=== PATIENT | male | born 1960 | race Caucasian/White ===

== ENCOUNTER 2018-08-20 01:35 | Outpatient (CLI) | payer BC, SELFPAY ==
[2018-08-20 11:18] LABS: HCT 41.8 % (40.0-50.0); HGB 13.9 g/dL (13.5-17.5); Mean Corp. HGB Concentration 33.3 g/dL (32.0-36.0); Mean Corpuscular Hemoglobin 31.7 pg (27.0-33.0); Mean Corpuscular Volume 95.4 fL (80-95); Platelet Count 317 x1000/uL (130-400); RBC 4.38 m/cumm (4.50-6.00); White Blood Cell Count 5.95 k/cumm (4.4-10.8)
[2018-08-20 12:53] LABS: ALT 35 U/L (12-78); AST 28 U/L (15-37); Albumin 3.5 g/dL (3.4-5.0); Alkaline Phosphatase 82 U/L (46-116); BUN 20 mg/dL (7-18); Bilirubin, Total 0.7 mg/dL (0.2-1.0); CREATININE 1.13 mg/dL (0.70-1.30); Calcium 9.1 mg/dL (8.5-10.1); Chloride 103 mmol/L (98-107); Glucose 84 mg/dL (70-100); Potassium 4.2 mmol/L (3.5-5.1); Sodium 141 mmol/L (136-145); Total Protein 6.4 g/dL (6.4-8.2)
== END 2018-08-20 01:55 ==
PROVIDERS: PCP Emergency Medicine; Visit Provider Dermatology
DX: L30.9 Dermatitis, unspecified (principal); Z79.899 Other long term (current) drug therapy
CPT/HCPCS: 36415; 80053; 85027

== ENCOUNTER 2018-09-20 16:16 | Outpatient (CLI) | payer BC, SELFPAY ==
--- NOTE | 2018-09-20 15:28 | DI.RAD_ITS ---
SYMPTOMS/DIAGNOSIS: RIGHT LOWER LOBE PNEUMONIA, J18.1 LOBAR PNEUMONIA PA AND LATERAL CHEST: The heart is not enlarged. There is a faint nodular radiodensity overlying the right lung apex, which was not present on previous examination of 02/08/18. Question of a couple of small focal areas of nodularity projected over the left mid lung is also raised. No pleural effusions seen. CONCLUSION: Question bilateral nodular radiodensities. Chest CT suggested for correlation to evaluate the possibility of neoplastic disease.
== END 2018-09-20 16:36 ==
PROVIDERS: PCP Emergency Medicine; Visit Provider Emergency Medicine
DX: J18.1 Lobar pneumonia, unspecified organism (principal); J98.4 Other disorders of lung
CPT/HCPCS: 71046

== ENCOUNTER 2018-10-04 08:53 | Outpatient (CLI) | payer BC, SELFPAY ==
--- NOTE | 2018-10-04 08:58 | DI.RAD_ITS ---
SYMPTOM/DIAGNOSIS: ABNORMAL CXR. FEVER AND COUGH R93.89, ABNORMAL FINDINGS ON DIAG IMAGING CHEST X-RAY: PA and lateral. Comparison 09/20/18 The multi-focal air space opacities have resolved. No acute infiltrates, effusions or pneumothoraces are identified. Heart size and pulmonary vasculature are within normal limits. Age related degenerative changes are seen in the spine. IMPRESSION: No acute pulmonary process. Resolution of the bilateral pulmonary infiltrates.
== END 2018-10-04 09:13 ==
PROVIDERS: PCP Emergency Medicine; Visit Provider Emergency Medicine
DX: R50.9 Fever, unspecified (principal); R05 Cough; R93.89 Abnormal findings on diagnostic imaging of other specified body structures
CPT/HCPCS: 71046

== ENCOUNTER 2018-11-22 05:57 | Emergency (ER) | payer BC, SELFPAY ==
[2018-11-22 06:04] VITALS: BP 112/59; PULSE 72; RESP 18; TEMP 36.5; O2SAT 100
--- NOTE | 2018-11-22 06:27 | ED.GENADUL_ITS ---
Discharge Plan Disposition Patient Disposition: HOME Condition: Good Discharge Details Chief Complaint: Abd Prob Clinical Impression: Renal colic on right side, Kidney stone, Renal cyst Primary Care Provider: Chan Osman ED Provider: Se Escamilla Home Meds and New Rx's Prescriptions: Continued ProAir HFA 8.5 GM HFA aerosol inhaler 2 puff Inhalation Q4H PRN Qty: 3 RF: 12 folic acid 1 MG tablet 1 mg PO DAILY RF: 0 albuterol sulfate 2.5 MG/3 ML solution for nebulization 2.5 mg Inhalation Q4H PRN Qty: 2 RF: 3 methotrexate sodium 2.5 MG tablet 2.5 mg PO takes 6 tablets/week Qty: 72 RF: 4 lisinopril 5 MG tablet 5 mg PO DAILY Qty: 90 RF: 4 Spiriva with HandiHaler 18 mcg capsule, w/inhalation device 18 mcg Inhalation DAILY Qty: 1 RF: 12 hydroxyzine HCl 10 mg tablet 10 mg PO BID PRNQty: 90 RF: 3 Advair Diskus 500-50 mcg/dose blister with device 1 inh Inhalation BID Qty: 2 RF: 12 lorazepam [Ativan] 1 mg tablet 1 mg PO HS PRN (Reason: sleep) Qty: 25 RF: 1 montelukast [Singulair] 10 mg tablet 10 mg PO DAILY Qty: 90 RF: 3 Discharge Instructions Instructions: Kidney Stones (ED) Additional Instructions: Please follow-up with your primary care physician. Return to the ER for any worsening or new concerning symptoms. Referrals: Chan Osman, [Primary Care Provider] - Discharge Data Discharge Date/Time-TO BE ENTERED AT DEPARTURE: 11/22/18 09:58 Medical Decision Making <Elvin Kelley MD - Last Filed: 11/23/18 22:13> Patient presenting with right lower quadrant pain which is resolved. He states he felt a pop but he never felt a bulge or firmness in the abdomen. He had some urinary symptoms and has mild CVAT. My differential would be kidney stone versus hernia. I am leaning more toward a kidney stone. He has never had this previously and despite his pain being gone I am going to work him up with laboratory studies, urinalysis, stone study. Laboratory studies unremarkable. White count is slightly elevated. Renal function normal. Urinalysis positive for blood only. Stone study does show evidence of a recently passed calculus on the right. However, he is also noted to have bilateral renal lesions including something on the left that may be a hemorrhagic cyst. He has no pain currently and has never had pain on the left. Because of the report of lesions I am going to get renal ultrasound is to rule out significant pathologic condition. Signed over to Dr. Escamilla to follow-up on ultrasound results and plan discharge as appropriate. Lab Data Lab results reviewed: Yes I reviewed the patient's lab results. HPI <Elvin Kelley MD - Last Filed: 11/23/18 22:13> General Mode of arrival: ambulatory . Date/Time Provider Initiated Documentation: 11/22/18 06:22 . Limitations to Documentation: no limitations . Information obtained by: patient and RN notes reviewed . HPI Narrative: Patient presents to the ED for evaluation of right sided abdominal pain. It woke him up out of a sleep. He was pacing and doubled over. He had episodes of dry heaves. [place] like he needed to defecate but could not. Had a little bit of urinary urgency and dysuria. He has had no fevers. While here he felt a little pop in his pain went away. He has never had it previously. It has not returned here. Related Data Home Medications Medication Instructions Recorded Confirmed ProAir HFA 2 puff INHALATION Q4H PRN #3 11/17/17 11/22/18 inhaler folic acid 1 mg PO DAILY tab-cap 02/05/18 11/22/18 albuterol sulfate 2.5 mg INHALATION Q4H PRN #2 box 02/08/18 11/22/18 methotrexate sodium 2.5 mg PO takes 6 tablets/week #72 03/21/18 11/22/18 tab lisinopril 5 mg PO DAILY #90 tab 04/03/18 11/22/18 tiotropium bromide 18 mcg capsule 18 mcg INHALATION DAILY #1 tab-cap 08/07/18 11/22/18 with inhalation device hydroxyzine HCl 10 mg tablet 10 mg PO BID PRN #90 tab 09/20/18 11/22/18 fluticasone 500 mcg-salmeterol 50 1 inh INHALATION BID #2 each 10/12/18 11/22/18 mcg/dose blistr powdr for inhalation lorazepam 1 mg tablet 1 mg PO HS PRN #25 tab-cap 10/12/18 11/22/18 montelukast 10 mg tablet 10 mg PO DAILY #90 tab-cap 10/12/18 11/22/18 Previous Rx's Medication Instructions Recorded ProAir HFA 2 puff INHALATION Q4H PRN #3 11/17/17 inhaler albuterol sulfate 2.5 mg INHALATION Q4H PRN #2 box 02/08/18 methotrexate sodium 2.5 mg PO takes 6 tablets/week #72 03/21/18 tab lisinopril 5 mg PO DAILY #90 tab 04/03/18 tiotropium bromide 18 mcg capsule 18 mcg INHALATION DAILY #1 tab-cap 08/07/18 with inhalation device fluticasone 500 mcg-salmeterol 50 1 inh INHALATION BID #2 each 10/12/18 mcg/dose blistr powdr for inhalation lorazepam 1 mg tablet 1 mg PO HS PRN #25 tab-cap 10/12/18 montelukast 10 mg tablet 10 mg PO DAILY #90 tab-cap 10/12/18 Allergies Allergy/AdvReac Type Severity Reaction Status Date / Time DOG DANDER Allergy Mild Uncoded 11/22/18 06:11 DUST Allergy Mild Uncoded 11/22/18 06:11 POLLEN EXTRACTS Allergy Mild Uncoded 11/22/18 06:11 WHITE PINE Allergy Unknown Uncoded 11/22/18 06:11 General Stated Complaint: Abd Prob ADRIANA: 3 Review of Systems <Elvin Kelley MD - Last Filed: 11/23/18 22:13> Constitutional Denies chills, Denies fever(s), Denies headache(s), Denies poor appetite and Denies weakness Eyes Denies eye discharge and Denies itchy eyes ENT Denies otalgia, Denies headache(s), Denies nasal congestion, Denies neck pain and Denies sore throat Cardiovascular Denies chest pain, Denies diaphoresis, Denies edema, Denies lightheadedness and Denies dyspnea Respiratory Denies cough and Denies dyspnea Gastrointestinal Reports abdominal pain, Denies diarrhea, Reports nausea and Reports vomiting Genitourinary Denies hematuria, Reports dysuria, Denies flank pain, Denies scrotal swelling, Denies testicular pain and Reports urinary urgency Musculoskeletal Reports back pain (unchanged), Denies neck pain and Denies numbness Integumentary/Breasts Denies rash Neurologic Denies headache(s), Denies focal weakness, Denies numbness and Denies weakness Allergic/Immunologic Denies itchy eyes PFSH <Elvin Kelley MD - Last Filed: 11/23/18 22:13> Medical History Peptic ulcer of duodenum (Chronic 03/03/17) Hyperlipidemia (Chronic) Essential hypertension (Chronic) Erosive gastritis (Chronic 03/03/17) Asthma (Chronic) Surgical History Colonoscopy - MAC (Inactive 10/11/17) EGD - MAC (Inactive 10/11/17) HERNIA REPAIR (Inactive ~2010) Social History Smoking/Tobacco Use Status: Never Exam <Elvin Kelley MD - Last Filed: 11/23/18 22:13> Const General: cooperative, comfortable and no acute distress Orientation: alert and oriented x3 Neck Neck: normal visual inspection, trachea midline and supple Resp Effort & Inspection: normal respiratory effort Auscultation: clear to auscultation bilaterally Cardio Rate: regular rate Rhythm: regular rhythm Heart Sounds: S1 normal and S2 normal GI Inspection: non-distended Palpation: soft, not firm, no guarding, no hernias, no masses and nontender Male General Exam: Yes normal external exam, No hernia and No inguinal lymphadenopathy Penis: normal penis Scrotum: scrotum normal Testes: normal Back/Spine/Pelvis Back: CVA tenderness (mild right) Skin General skin exam: no rashes or lesions noted Neuro General: alert, oriented x3, no focal motor deficits and CN's II-XI intact bilaterally Extrem General: normal to inspection, full ROM and no clubbing, cyanosis or edema Course <Elvin Kelley MD - Last Filed: 11/23/18 22:13> Vital Signs Temperature 97.7 F 11/22/18 06:04 Pulse 72 11/22/18 06:04 Respiratory Rate 18 11/22/18 06:04 Blood Pressure 112/59 L 11/22/18 06:04 Pulse Oximetry 100 11/22/18 06:04 Temperature 97.7 F 11/22/18 06:04 Temperature Source Temporal Artery Scan 11/22/18 06:04 Pulse 72 11/22/18 06:04 Respiratory Rate 18 11/22/18 06:04 Respiratory Effort 11/22/18 06:04 Blood Pressure 112/59 L 11/22/18 06:04 Pulse Oximetry 100 11/22/18 06:04 Oxygen Delivery Method Room Air 11/22/18 06:04 Oxygen Flow Rate 0 11/22/18 06:04 Pain Level 8 11/22/18 06:04 Sign Out <Elvin Kelley MD - Last Filed: 11/23/18 22:13> Sign Out Data: Sign Out Comment: Signed out to Dr. Escamilla pending renal U/S Last updated by Elvin Kelley MD at 11/22/18 08:23 Post-Handoff Eval: Care signed out by Dr. Kelley with plan to follow-up on ultrasound. US interpreted by radiology: renal cysts present and unchanged from prior. Patient reassessed and much improved. Disposition decision was made weighing the risks and benefits of hospitalization versus outpatient treatment, the risk for further decompensation, and the patient's wishes. The patient was stable and requested discharge. Prior to discharge, my usual and customary return precautions were reviewed with the patient - this included follow-up instructions and reason to return to the emergency department if condition worsens, does not improve as expected, or other new concerns arise. Patient advised to follow-up with PCP.
--- NOTE | 2018-11-22 06:37 | DI.CT_ITS ---
SYMPTOM/DIAGNOSIS: RIGHT SIDE ABDOMINAL/FLANK PAIN RENAL COLIC CT: Comparison is made with 17 February 2017, contrast enhanced exam. There is mild right hydronephrosis. The ureter is dilated to the level of the ureterovesical junction. There is a 1-2 mm stone seen in the dependent portion of the bladder. The bladder is mildly distended but unremarkable. No additional urinary tract calculi are seen. There is a circumscribed hyperdense lesion on the left kidney consistent with a hyperdense cyst. The cyst was demonstrated on the previous CT. An additional cyst is seen at the upper pole of the left kidney, unchanged. There is a tiny hyperdense cyst seen in the mid portion of the right kidney, unchanged. There is a small hiatal hernia. There is a small right pleural effusion. A small portion of the base of the heart is included on the exam. There is a question of a small pericardial effusion. No pulmonary infiltrates are seen. The liver, gallbladder, spleen, adrenals and pancreas are unremarkable. The appendix appears normal. There is diverticulosis of the colon greatest in the sigmoid region. There is no evidence of diverticulitis, free air or free fluid. The prostate is normal in size. The aorta is normal in diameter. Degenerative changes are seen in the spine, greatest at L5-S1. IMPRESSION: Mild right hydronephrosis secondary to a 1-2 mm stone which is now seen in the bladder. A tiny right pleural effusion and small pericardial effusion are seen. There are bilateral renal cysts, some of which are hyperdense which are unchanged from the previous exam.
[2018-11-22 06:57] LABS: Abs Immature Grans 0.03 k/cumm (0.0-0.09); Absolute Basophil Count 0.03 k/cumm (0.0-0.2); Absolute Eosinophil Count 0.48 k/cumm (0.0-0.7); Absolute Lymphocyte Count 1.31 k/cumm (1.2-3.4); Absolute Neutrophil Count 8.64 k/cumm (1.2-6.7); Basophils % 0.3; Eosinophils % 4.2; HGB 13.7 g/dL (13.5-17.5); Immature Grans % 0.3; Lymphocytes % 11.4; Mean Corp. HGB Concentration 32.6 g/dL (32.0-36.0); Mean Corpuscular Hemoglobin 30.6 pg (27.0-33.0); Mean Corpuscular Volume 93.8 fL (80-95); Mean Platelet Volume 8.5 fL (8.0-11.0); Monocytes % 8.5; Neutrophils % 75.3; Platelet Count 432 x1000/uL (130-400); RBC 4.48 m/cumm (4.50-6.00); White Blood Cell Count 11.47 k/cumm (4.4-10.8)
[2018-11-22 06:58] LABS: Absolute Monocyte Count 0.97 k/cumm (0.11-0.7)
[2018-11-22 07:05] LABS: Bilirubin Negative (Negative); Blood Moderate (Negative); Clarity Clear; Glucose Negative (Negative); Ketones Negative (Negative); Leukocyte Esterase Negative (Negative); Nitrite Negative (Negative); Urobilinogen 0.2 EU/dL (Up TO 0.2); pH 7.5 (5-8)
[2018-11-22 07:10] LABS: ALT 15 U/L (12-78); AST 12 U/L (15-37); Albumin 3.3 g/dL (3.4-5.0); Alkaline Phosphatase 101 U/L (46-116); Anion Gap 7.5 mmol/L (3-11); BUN 21 mg/dL (7-18); Bilirubin, Total 0.3 mg/dL (0.2-1.0); CO2 29.5 mmol/L (21.0-32.0); CREATININE 1.03 mg/dL (0.70-1.30); Calcium 9.2 mg/dL (8.5-10.1); Chloride 102 mmol/L (98-107); Glucose 93 mg/dL (70-100); Lipase 85 U/L (73-393); Potassium 4.4 mmol/L (3.5-5.1); Sodium 139 mmol/L (136-145); Total Protein 7.5 g/dL (6.4-8.2)
--- NOTE | 2018-11-22 07:29 | DI.VRAD_ITS ---
EXAM: CT Abdomen and Pelvis Without Contrast EXAM DATE/TIME: 11/22/2018 6:39 AM CLINICAL HISTORY: 58 years old, male; Signs and symptoms; Other: Right sided abdominal pain, flank pain TECHNIQUE: Axial computed tomography images of the abdomen and pelvis without contrast. All CT scans at this facility use at least one of these dose optimization techniques: automated exposure control; mA and/or kV adjustment per patient size (includes targeted exams where dose is matched to clinical indication); or iterative reconstruction. Coronal and sagittal reformatted images were created and reviewed. COMPARISON: CT ABD PELVIS WITH CONTRAST 02/17/2017 12:35 PM FINDINGS: Lower thorax: No acute findings. ABDOMEN: Liver: Normal. No mass. Gallbladder and bile ducts: Normal. No calcified stones. No ductal dilation. Pancreas: Normal. No ductal dilation. Spleen: Normal. No splenomegaly. Adrenals: Normal. No mass. Kidneys and ureters: Bilateral renal lesions are present including what likely reflects a hemorrhagic cyst on the left measuring 19 mm Mild fullness of the right-sided renal collecting system and ureter. A 1-2 mm bladder calculus is present which may reflect a recently passed right sided ureteral stone. Stomach and bowel: Colonic diverticulosis is present without evidence for inflammation. Appendix: No evidence of appendicitis. PELVIS: Bladder: See Kidneys And Ureters Finding. Reproductive: Unremarkable as visualized. ABDOMEN and PELVIS: Intraperitoneal space: Normal. No free air. No significant fluid collection. Bones/joints: No acute fracture. No dislocation. Soft tissues: Unremarkable. Vasculature: Normal. No abdominal aortic aneurysm. Lymph nodes: Normal. No enlarged lymph nodes. IMPRESSION: Mild fullness of the right-sided renal collecting system and ureter. A 1-2 mm bladder calculus is present which may reflect a recently passed right sided ureteral stone. Dictated and Authenticated by: Antony Smith MD. Ordering:SUKHI Oconnor MD
[2018-11-22 07:42] LABS: Bacteria Negative HPF (Negative); C & S Indicated? No; Casts Negative LPF (Negative); Crystals Negative HPF (Negative); Epithelial Cells Negative HPF (Negative); Mucus Negative (Negative); RBC >50 (0-2); WBC 0-2 HPF (0-5)
--- NOTE | 2018-11-22 07:43 | DI.US_ITS ---
SYMPTOM/DIAGNOSIS: BILATERAL 'LESIONS' ON STONE STUDY CT SCAN RENAL ULTRASOUND: The pre-void bladder volume measures 142 cc The prostate volume is 11.6 cc. Both ureteral jets were visualized. A tiny stone was seen in the bladder on CT which is not demonstrated on the ultrasound images. No significant right hydronephrosis is demonstrated which was seen on CT. A 1.5 cm cyst is seen in the mid portion of the left kidney laterally. A 1.3 cm cyst is seen near the upper pole of the left kidney. The tiny cyst seen on CT is not noted on the ultrasound images. There are no perinephric collections. IMPRESSION: Small bilateral renal cysts, unchanged when compared with previous CT from 2017. The stone seen in the bladder as well as a mild right hydronephrosis are not demonstrated on the ultrasound images.
[2018-11-22 09:58] VITALS: BP 119/70; PULSE 68; RESP 15; TEMP 36.5; O2SAT 100
== END 2018-11-22 09:58 | disposition home or self-care (01) ==
PROVIDERS: Emergency Medicine; Emergency Provider Student in an Organized Health Care Education/Training Program; PCP Emergency Medicine
DX: N23 Unspecified renal colic (principal); N20.0 Calculus of kidney; N28.1 Cyst of kidney, acquired
CPT/HCPCS: 36415; 76770; 80053; 83690; 99284; 74176; 81003; 81015; 85025

== ENCOUNTER 2018-11-30 15:02 | Outpatient (CLI) | payer BC, SELFPAY ==
[2018-11-30 15:43] LABS: Abs Immature Grans 0.01 k/cumm (0.0-0.09); Absolute Basophil Count 0.05 k/cumm (0.0-0.2); Absolute Eosinophil Count 0.49 k/cumm (0.0-0.7); Absolute Lymphocyte Count 1.71 k/cumm (1.2-3.4); Absolute Neutrophil Count 5.46 k/cumm (1.2-6.7); Basophils % 0.6; Eosinophils % 5.9; HGB 12.3 g/dL (13.5-17.5); Immature Grans % 0.1; Lymphocytes % 20.6; Mean Corp. HGB Concentration 32.4 g/dL (32.0-36.0); Mean Corpuscular Hemoglobin 30.1 pg (27.0-33.0); Mean Corpuscular Volume 93.1 fL (80-95); Mean Platelet Volume 8.7 fL (8.0-11.0); Monocytes % 7.2; Neutrophils % 65.6; Platelet Count 454 x1000/uL (130-400); RBC 4.08 m/cumm (4.50-6.00); RBC Distribution Width 13.5 % (11.8-14.1); White Blood Cell Count 8.32 k/cumm (4.4-10.8)
[2018-11-30 16:24] LABS: Ferritin 511 ng/mL (8-388)
[2018-11-30 16:53] LABS: ESR 61 MM/HR (1-20)
[2018-12-03 10:46] LABS: Cyclic Citrullinated Peptide <2.5 U/mL (<5.0)
[2018-12-03 11:18] LABS: HIV-1/2 Ag & Ab Screen Negative (NEGAT)
[2018-12-03 12:04] LABS: CREATININE 1.25 mg/dL (0.70-1.30); Estimated GFR 59.75 (mL/min/1.73m2)
== END 2018-11-30 15:22 ==
PROVIDERS: PCP Emergency Medicine; Visit Provider Emergency Medicine
DX: J90 Pleural effusion, not elsewhere classified (principal); Z11.4 Encounter for screening for human immunodeficiency virus [HIV]
CPT/HCPCS: 36415; 85652; 86200; 87389; 82565; 82728; 85025; 86480

== ENCOUNTER 2018-12-05 00:36 | Outpatient (CLI) | payer BC, SELFPAY ==
--- NOTE | 2018-12-05 13:16 | DI.CT_ITS ---
SYMPTOMS/DIAGNOSIS: WEIGHT LOSS, RT PLEURAL EFFUSION, J90 CHEST CT: A with contrast enhanced CT examination of the chest was carried out with an intravenous administration of 70 cc's of Omnipaque 350. There is no pulmonary infiltrate or mass. There is no pleural effusion. There is no evidence of pulmonary embolic disease. There is no evidence of hilar or mediastinal adenopathy. The heart is not enlarged. There may be a trace pericardial effusion or pericardial thickening. There is no evidence of an aortic aneurysm. Degenerative changes involving the dorsal spine are identified with multi-level disc space narrowing, discogenic sclerosis and hypertrophic spurring involving the lower dorsal region. There is no localized area of bony sclerosis, osteolysis or expansion. SUMMARY: No pleural effusion is demonstrated on today's examination. There is nothing to suggest acute cardiopulmonary disease, pulmonary mass and/or adenopathy.
[2018-12-05] MEDS: Omnipaque 350 MG/ML 100 ML BTL IJ (14:21)
[2018-12-07 14:22] LABS: TB Interpretation Negative (NEGAT); TB2 Ag minus Nil 0.01 IU/mL
== END 2018-12-05 00:56 ==
PROVIDERS: PCP Emergency Medicine; Visit Provider Emergency Medicine
DX: J90 Pleural effusion, not elsewhere classified (principal); R63.4 Abnormal weight loss
CPT/HCPCS: 71260; 86480; J3490

== ENCOUNTER 2018-12-24 08:42 | Outpatient (CLI) | payer BC, SELFPAY ==
[2018-12-24 12:08] LABS: Abs Immature Grans 0.02 k/cumm (0.0-0.09); Absolute Basophil Count 0.03 k/cumm (0.0-0.2); Absolute Eosinophil Count 0.76 k/cumm (0.0-0.7); Absolute Lymphocyte Count 2.21 k/cumm (1.2-3.4); Absolute Monocyte Count 0.62 k/cumm (0.11-0.7); Absolute Neutrophil Count 6.75 k/cumm (1.2-6.7); Basophils % 0.3; Eosinophils % 7.3; HCT 42.7 % (40.0-50.0); HGB 13.9 g/dL (13.5-17.5); Immature Grans % 0.2; Lymphocytes % 21.3; Mean Corp. HGB Concentration 32.6 g/dL (32.0-36.0); Mean Corpuscular Hemoglobin 30.1 pg (27.0-33.0); Mean Corpuscular Volume 92.4 fL (80-95); Mean Platelet Volume 10.3 fL (8.0-11.0); Neutrophils % 64.9; Platelet Count 254 x1000/uL (130-400); RBC 4.62 m/cumm (4.50-6.00); RBC Distribution Width 14.9 % (11.8-14.1); White Blood Cell Count 10.39 k/cumm (4.4-10.8)
[2018-12-24 12:27] LABS: TSH 2.51 uIU/mL (0.358-3.74)
[2018-12-24 12:32] LABS: Bilirubin Negative (Negative); Blood Negative (Negative); Clarity Clear; Glucose Negative (Negative); Ketones Negative (Negative); Leukocyte Esterase Negative (Negative); Nitrite Negative (Negative); Specific Gravity >= 1.030 (1.005-1.025); Urobilinogen 0.2 EU/dL (Up TO 0.2); pH 5.5 (5-8)
[2018-12-24 13:48] LABS: ESR 11 MM/HR (1-20)
== END 2018-12-24 09:02 ==
PROVIDERS: PCP Emergency Medicine; Visit Provider Emergency Medicine
DX: R63.4 Abnormal weight loss (principal); R30.0 Dysuria; E03.9 Hypothyroidism, unspecified
CPT/HCPCS: 36415; 85652; 81003; 84443; 85025

== ENCOUNTER 2019-03-29 13:35 | Outpatient (CLI) | payer BC, SELFPAY ==
[2019-03-29 14:22] LABS: Abs Immature Grans 0.01 k/cumm (0.0-0.09); Absolute Basophil Count 0.02 k/cumm (0.0-0.2); Absolute Monocyte Count 0.54 k/cumm (0.11-0.7); Absolute Neutrophil Count 5.87 k/cumm (1.2-6.7); Basophils % 0.2; Eosinophils % 7.8; HCT 43.4 % (40.0-50.0); HGB 14.7 g/dL (13.5-17.5); Immature Grans % 0.1; Lymphocytes % 20.1; Mean Corp. HGB Concentration 33.9 g/dL (32.0-36.0); Mean Corpuscular Hemoglobin 31.3 pg (27.0-33.0); Mean Corpuscular Volume 92.3 fL (80-95); Mean Platelet Volume 9.6 fL (8.0-11.0); Neutrophils % 65.8; Platelet Count 286 x1000/uL (130-400); RBC Distribution Width 12.9 % (11.8-14.1); White Blood Cell Count 8.94 k/cumm (4.4-10.8)
[2019-03-29 14:33] LABS: ALT 25 U/L (12-78); AST 12 U/L (15-37); Albumin 3.5 g/dL (3.4-5.0); Alkaline Phosphatase 102 U/L (46-116); Anion Gap 8.8 mmol/L (3-11); BUN 19 mg/dL (7-18); Bilirubin, Total 0.5 mg/dL (0.2-1.0); CO2 29.2 mmol/L (21.0-32.0); CREATININE 1.13 mg/dL (0.70-1.30); Calcium 8.9 mg/dL (8.5-10.1); Chloride 102 mmol/L (98-107); Glucose 111 mg/dL (70-100); Potassium 3.7 mmol/L (3.5-5.1); Sodium 140 mmol/L (136-145); Total Protein 6.7 g/dL (6.4-8.2)
== END 2019-03-29 13:55 ==
PROVIDERS: PCP Emergency Medicine; Visit Provider Dermatology
DX: Z79.899 Other long term (current) drug therapy (principal)
CPT/HCPCS: 36415; 80053; 85025

== ENCOUNTER 2019-11-25 10:37 | Outpatient (CLI) | payer OTHER, SELFPAY ==
--- NOTE | 2019-11-25 10:33 | DI.RAD_ITS ---
EXAM: XR CHEST 2V PA LATERAL INDICATION: cough, R05. COMPARISON: XR CHEST 2V PA LATERAL from 10/04/2018 TECHNIQUE: 2D digital imaging was performed. FINDINGS: The heart size and pulmonary vasculature are within normal limits. There is an opacity in the right middle lobe suspicious for an pneumonia. The lungs are otherwise clear. No pleural effusion or pneu mothorax is identified. Degenerative changes are present in the spine. IMPRESSION: Opacity in the right middle lobe suspicious for pneumonia. A follow-up chest x-ray is recommended in this patient to document complete resolution. If the finding persists, a CT scan should be consider ed to exclude other etiologies.
[2019-11-25 11:02] LABS: Abs Immature Grans 0.06 k/cumm (0.0-0.09); Absolute Basophil Count 0.02 k/cumm (0.0-0.2); Absolute Lymphocyte Count 2.04 k/cumm (1.2-3.4); Basophils % 0.1; HCT 44.1 % (40.0-50.0); HGB 14.1 g/dL (13.5-17.5); Immature Grans % 0.3 %; Lymphocytes % 9.9; Mean Corpuscular Hemoglobin 29.8 pg (27.0-33.0); Mean Corpuscular Volume 93.2 fL (80-95); Mean Platelet Volume 9.1 fL (8.0-11.0); Monocytes % 8.7; Platelet Count 217 x1000/uL (130-400); RBC 4.73 m/cumm (4.50-6.00); RBC Distribution Width 13.8 % (11.8-14.1); White Blood Cell Count 20.59 k/cumm (4.4-10.8)
[2019-11-25 11:03] LABS: Absolute Monocyte Count 1.79 k/cumm (0.11-0.7); Absolute Neutrophil Count 16.68 k/cumm (1.2-6.7)
[2019-11-25 11:32] LABS: Diff Comment Diff Reviewed; RBC Morphology Normal
[2019-11-25 12:05] LABS: ALT 24 U/L (16-63); AST 17 U/L (15-37); Albumin 3.3 g/dL (3.4-5.0); Alkaline Phosphatase 85 U/L (46-116); Anion Gap 8.9 mmol/L (3-11); Bilirubin, Total 0.5 mg/dL (0.2-1.0); CO2 29.1 mmol/L (21.0-32.0); CREATININE 1.34 mg/dL (0.70-1.30); Calcium 8.4 mg/dL (8.5-10.1); Chloride 104 mmol/L (98-107); Estimated GFR 54.94 (mL/min/1.73m2); Glucose 73 mg/dL (74-106); Potassium 3.6 mmol/L (3.5-5.1); Sodium 142 mmol/L (136-145); Total Protein 6.3 g/dL (6.4-8.2)
[2019-11-25 12:13] LABS: BUN 25 mg/dL (7-18)
== END 2019-11-25 10:57 ==
PROVIDERS: PCP Emergency Medicine; Visit Provider Internal Medicine
DX: R05 Cough (principal); R50.9 Fever, unspecified; J98.4 Other disorders of lung
CPT/HCPCS: 36415; 80053; 71046; 85025

== ENCOUNTER 2019-11-26 11:54 | Inpatient (IN) | payer OTHER, SELFPAY ==
[2019-11-26] VITALS (137 sets, daily range): BP systolic 67–106; BP diastolic 34–69; PULSE 80–179; RESP 2–30; TEMP 36.6–37.3; O2SAT 89–100
[2019-11-26] MEDS: Normal Saline 1,000 ML 1000 ML IV ×2 (12:20→16:05)
[2019-11-26] MEDS: Lactated Ringers 1,000 ML 1000 ML IV ×2 (12:30→13:00)
[2019-11-26] MEDS: levoFLOXacin 750 MG/150 ML BAG 150 MG IVPB (12:49)
[2019-11-26 12:51] LABS: Abs Immature Grans 0.11 k/cumm (0.0-0.09); HCT 38.2 % (40.0-50.0); HGB 12.6 g/dL (13.5-17.5); Mean Corpuscular Hemoglobin 30.1 pg (27.0-33.0); Mean Corpuscular Volume 91.4 fL (80-95); Mean Platelet Volume 9.6 fL (8.0-11.0); Platelet Count 234 x1000/uL (130-400); RBC 4.18 m/cumm (4.50-6.00); RBC Distribution Width 13.3 % (11.8-14.1); White Blood Cell Count 22.85 k/cumm (4.4-10.8)
[2019-11-26] MEDS: CEFEPIME 2 GM in Normal Saline 100 ML IVPB ×2 (12:51→20:47)
[2019-11-26 12:52] LABS: Lactate 2.7 mmol/L (0.6-1.4)
--- NOTE | 2019-11-26 13:04 | ED.GENADUL_ITS ---
Discharge Plan Discharge Details Chief Complaint: RespSymp Admit Date/Time: 11/26/19 13:44 Admit Provider: Sarah Hamm Attending Provider: Sarah Hamm Primary Care Provider: Chan Osman ED Provider: Se Escamilla Discharge Data Discharge Date/Time-TO BE ENTERED AT DEPARTURE: 11/26/19 15:28 Medical Decision Making 13:18 -- 59-year-old male with 1 week of cough, fever, had chest x-ray yesterday that showed right middle lobe pneumonia, started on azithromycin, prednisone and Tamiflu yesterday, here with worsening symptoms. Patient is tachycardic, hypotensive, and hypoxic on arrival. Patient is immunocompromised on dupilumab injection for eczema. Patient is septic. Initiated volume resuscitation. Patient was given 2 L of crystalloid and blood pressure improved to map of 67. Continuing third liter of crystalloid. Labs reviewed and lactate elevated at 2.7. Leukocytosis noted 22,000. Will initiate immediate broad-spectrum antibiotic coverage for pneumonia cefepime IV and levaquin IV. Patient currently saturating in the upper 90s on room air. I reviewed past medical record including chest x-ray from 11/25/2019 that revealed right middle lobe pneumonia. Plan to repeat chest x-ray today. -- ECG was reviewed and interpreted by me: Atrial fibrillation with right bundle branch block, more than 50 bpm. I suspect patient's tachycardia and hypotension as a result of sepsis. Should tachycardia not improve with further volume resuscitation and treatment of sepsis, cardioversion should be considered. -- cxr reviewed and interpreted by radiology: Since the prior examination there has been progression of the infiltrate in the right lung and development of a left basilar infiltrate. There is now blunting of the left costophrenic angle suggesting a small pleural effusion. The heart size and pulmonary vasculature are within normal limits. There is no pneumothorax. There are degenerative changes seen in the spine. IMPRESSION: Progressive pulmonary infiltrates suggesting progressive pneumonia. -- Plan for admission. Awaiting call back. 13:50 --I spoke with Dr. Hamm, discussed ED presentation and course, she will accept the patient to the ICU. Patient in critical condition at time of admission. Care transition to Dr. Hamm. HPI General Mode of arrival: ambulatory . Date/Time Provider Initiated Documentation: 11/26/19 12:32 . Limitations to Documentation: no limitations . Information obtained by: patient, family and old records reviewed . HPI Narrative: 59-year-old male with 1 week of cough, fever, had chest x-ray yesterday that showed right middle lobe pneumonia, started on azithromycin, prednisone and Tamiflu yesterday, here with worsening symptoms. Patient chief complaint is cough. Patient notes severe productive cough. Cough is severe and has persisted for about a week. No modifiers. He has associated fever and generally not feeling well. Patient sent by primary care physician for further evaluation and treatment. Related Data Home Medications Medication Instructions Recorded Confirmed hydroxyzine HCl 10 mg tablet 10 mg PO BID PRN #90 tab 09/20/18 11/26/19 lisinopril 5 mg tablet 5 mg PO DAILY #90 tab 03/01/19 11/26/19 fluticasone 500 mcg-salmeterol 50 1 inh INHALATION BID #2 each 08/09/19 11/26/19 mcg/dose blistr powdr for inhalation lorazepam 1 mg tablet 1 mg PO HS PRN #60 tab-cap 08/09/19 11/26/19 albuterol sulfate 2.5 mg INHALATION Q4H PRN #2 box 09/13/19 11/26/19 albuterol sulfate 90 mcg/actuation 2 puff IH QID PRN #18 gm 10/04/19 11/26/19 aerosol inhaler dupilumab 200 mg/1.14 mL 200 mg SC Q3W ml 10/07/19 11/26/19 subcutaneous syringe tiotropium bromide 18 mcg capsule 18 mcg INHALATION DAILY #1 tab-cap 11/12/19 11/26/19 with inhalation device azithromycin 250 mg tablet See Rx Instructions PO .COMPLEX #6 11/25/19 11/26/19 tab oseltamivir 75 mg capsule 75 mg PO BID #10 cap 11/25/19 11/26/19 prednisone 10 mg tablet 10 mg PO DAILY #30 tab 11/25/19 11/26/19 Previous Rx's Medication Instructions Recorded lisinopril 5 mg tablet 5 mg PO DAILY #90 tab 03/01/19 fluticasone 500 mcg-salmeterol 50 1 inh INHALATION BID #2 each 08/09/19 mcg/dose blistr powdr for inhalation lorazepam 1 mg tablet 1 mg PO HS PRN #60 tab-cap 08/09/19 albuterol sulfate 2.5 mg INHALATION Q4H PRN #2 box 09/13/19 albuterol sulfate 90 mcg/actuation 2 puff IH QID PRN #18 gm 10/04/19 aerosol inhaler tiotropium bromide 18 mcg capsule 18 mcg INHALATION DAILY #1 tab-cap 11/12/19 with inhalation device azithromycin 250 mg tablet See Rx Instructions PO .COMPLEX #6 11/25/19 tab oseltamivir 75 mg capsule 75 mg PO BID #10 cap 11/25/19 prednisone 10 mg tablet 10 mg PO DAILY #30 tab 11/25/19 Allergies Allergy/AdvReac Type Severity Reaction Status Date / Time methotrexate AdvReac Severe weight loss Verified 11/26/19 12:09 DOG DANDER Allergy Mild Uncoded 11/26/19 12:09 DUST Allergy Mild Uncoded 11/26/19 12:09 POLLEN EXTRACTS Allergy Mild Uncoded 11/26/19 12:09 [place] Allergy Unknown Uncoded 11/26/19 12:09 General Stated Complaint: RespSymp ADRIANA: 2 Review of Systems All systems reviewed & are unremarkable except as noted in HPI and below Constitutional Constitutional: Reports body ache(s), Reports fatigue and Reports fever(s) Respiratory Respiratory: Reports cough Endocrine Endocrine: Reports fatigue PFS Medical History Asthma (Chronic) Erosive gastritis (Chronic 03/03/17) Essential hypertension (Chronic) Hyperlipidemia (Chronic) Peptic ulcer of duodenum (Chronic 03/03/17) Surgical History Colonoscopy - MAC (Inactive 10/11/17) EGD - MAC (Inactive 10/11/17) HERNIA REPAIR (Inactive ~2010) Family History Other Adopted Social History Smoking/Tobacco Use Status: Never Alcohol Intake: current Alcohol Intake frequency: holidays/special occasions only Drug use: Never Substance use type: does not use Do you feel safe in your relationship?: Yes Exam Const General: cooperative and ill appearing HENMT Mouth: moist mucous membranes Eyes Conjunctivae: normal conjunctivae Sclera: normal sclerae Neck Neck: no lymphadenopathy, trachea midline and supple Resp Effort & Inspection: tachypneic Auscultation: rales on the left at the base, no rhonchi and no wheezes Cardio Jugular venous pressure: no JVD Rate: tachycardic Rhythm: regular rhythm GI Palpation: soft, not firm, no guarding, no masses, not rigid and nontender Skin General skin exam: no rashes or lesions noted Neuro General: alert, awake, oriented x3 and tone normal Extrem General: no edema Psych Appearance: grossly normal Mental Status: mental status grossly normal Course Vital Signs Vital signs: Vital Signs Temperature 37.3 C 11/26/19 12:05 Pulse 113 H 11/26/19 12:05 Respiratory Rate 11/26/19 12:05 Blood Pressure 70/46 L 11/26/19 12:05 Pulse Oximetry 90 L 11/26/19 12:05 Temperature 37.3 C 11/26/19 12:05 Temperature Source Skin 11/26/19 12:05 Pulse 141 H 11/26/19 12:48 Pulse 149 H 11/26/19 13:00 Respiratory Rate 11/26/19 13:00 Respiratory Effort 11/26/19 12:31 Respiratory Depth Normal 11/26/19 12:31 Blood Pressure 90/54 L 11/26/19 12:48 Blood Pressure Mean 57 11/26/19 12:48 Blood Pressure Position Sitting 11/26/19 12:05 Pulse Oximetry 99 11/26/19 12:50 Oxygen Delivery Method Room Air 11/26/19 12:05 Oxygen Flow Rate 0 11/26/19 12:05 Pain Level 7 11/26/19 12:05 Lab/Test Results Lab/Test Results: 11/26/19 12:20 Blood Blood Culture - Pending 11/26/19 12:29 Blood Blood Culture - Pending 11/26/19 12:31 Nasopharynx Influenza Types A,B Antigen - Pending Laboratory Tests Range/Units 11/26/19 12:20 Lactate (0.6-1.4) mmol/L 2.7 H* Critical Care Time Critical Care Time Critical Care Time: Yes Total Critical Care Time: 50 Attestation: I spent greater than 50 minutes addressing this patient's immediate life threats, providing initial resuscitation.
[2019-11-26 13:14] LABS: Absolute Monocyte Count 1.37 k/cumm (0.11-0.7); Absolute Neutrophil Count 19.65 k/cumm (1.2-6.7); Diff Comment Manual Differential; RBC Morphology Normal
[2019-11-26 13:16] LABS: ALT 17 U/L (16-63); AST 14 U/L (15-37); Albumin 2.9 g/dL (3.4-5.0); Alkaline Phosphatase 65 U/L (46-116); Anion Gap 10.7 mmol/L (3-11); BUN 39 mg/dL (7-18); Bilirubin, Total 1.2 mg/dL (0.2-1.0); CO2 26.3 mmol/L (21.0-32.0); Calcium 8.4 mg/dL (8.5-10.1); Chloride 98 mmol/L (98-107); Estimated GFR 34.61 (mL/min/1.73m2); Glucose 103 mg/dL (74-106); Potassium 3.9 mmol/L (3.5-5.1); Sodium 135 mmol/L (136-145); Total Protein 6.5 g/dL (6.4-8.2)
--- NOTE | 2019-11-26 13:24 | DI.RAD_ITS ---
EXAM: XR PORTABLE CHEST AP INDICATION: cough. COMPARISON: No exams were available for comparison TECHNIQUE: 2D digital imaging was performed. FINDINGS: Since the prior examination there has been progression of the infiltrate in the right lung and develo pment of a left basilar infiltrate. There is now blunting of the left costophrenic angle suggesting a small pleural effusion. The heart size and pulmonary vasculature are within normal limits. There is no pneumothorax. There are degenerative changes seen in the spine. IMPRESSION: Progressive pulmonary infiltrates suggesting progressive pneumonia.
[2019-11-26] MEDS: Normal Saline 1,000 ML 200 ML IV ×2 (13:36→19:42)
--- NOTE | 2019-11-26 13:54 | NUR.NOTE ---
patient reports feeling better, chest pain is improved, will continue to monitor. Nursing Note:
[2019-11-26] MEDS: Albuterol/Ipratropium 3 ML UPD VIAL UPD ×2 (14:01→18:37)
[2019-11-26 14:13] LABS: INR 1.1 (0.9-1.1); Prothrombin Time 10.6 sec (9.3-11.0)
[2019-11-26] MEDS: Hydrocortisone SOD SUC. 100 MG VIAL IVP (14:28)
[2019-11-26 14:42] LABS: Procalcitonin 31.1 ng/mL
[2019-11-26] MEDS: Digoxin 0.5 MG/2 ML AMP 0.125 MG IVP (16:23)
[2019-11-26] MEDS: Normal Saline Flush 10 ML SYR IVP ×2 (16:23→20:55)
[2019-11-26] MEDS: Pantoprazole 40 MG VIAL IVP (16:23)
--- NOTE | 2019-11-26 16:30 | W.PM.HP.N ---
Date of service: 11/26/19 Time of Service: 16:31 Assessment and Plan Assessment and plan (1) Septic shock: Status: Acute Assessment and plan: Due to pneumonia, present on admission. Patient's BP's are slightly improved. I think we will likely avoid pressors. Patient is admitted to the ICU on aggressive IVF, empiric vancomycin/cefepime, awaiting blood and sputum cultures. Additionally, offer stress dose steroids. Trend proclacitonin, lactates. (2) Rapid atrial fibrillation: Status: Acute Assessment and plan: Likely being fueled by septic pulmonary process. As BP's are improving, we have been able to initiate cardizem gtt with improvement in HR. Will carefully continue this while monitoring BP. Obtain echo tomorrow. Start heparin gtt for anticoagulation. (3) CAP (community acquired pneumonia): Status: Acute Assessment and plan: As above (4) Asthma with acute exacerbation: Status: Acute Assessment and plan: As above. On stress dose steroids. Treat pneumonia. Offer scheduled and prn nebs. (5) H/O: hypertension: Status: Acute Assessment and plan: Hold home antihypertensives (6) Elevated troponin: Status: Acute Assessment and plan: In setting of TAMAR, sepsis, and elevated HR, unlikely to represent true ischemia. Monitor serial troponins, recheck EKG in am, and check echo. (7) TAMAR (acute kidney injury): Status: Acute Assessment and plan: Most likely pre-renal, having to do with low perfusion due to HR/hypotension and sepsis. Continue IVF, monitoring I/O's and daily weights. (8) Lactic acidosis: Status: Acute Assessment and plan: In setting of septic shock. Improving. Continue to monitor. (9) DVT prophylaxis: Status: Acute Assessment and plan: On therapeutic heparin gtt (10) Discharge planning issues: Status: Acute Assessment and plan: Full code. Total Critical Care Time 60 minutes. History of Present Illness History of Present Illness Chief Complaint: Sent to the hospital by PCP Narrative: Mr Maier is a 59 year old male with PMHx of asthma, eczema on IL-4 inhibitor dupilumab, erosive gastritis and peptic ulcer disease, who was sent to [facility] by his PCP today (Dr Osman) after following up with him for an upper respiratory infection today. The patient states that for the last 7 days he had had both URI and GI sx including fever, chills, scratchy throat, runny nose, cough productive of green sputum, chest tightness, shortness of breath, dry heaves, and nausea. He went to see his PCP yesterday, was prescribed empiric azithromycin, a steroid taper, as well as empiric tamiflu and a referral for a CXR, revealing a RML pneumonia. When he arrived to the ED, he was in septic shock with SBP of 70/46, HR in 150-180's - Afib (new to patient), and he was in TAMAR with Cr of 2.0, up from normal of around 1.1. He did not have a fever in the ER, but his He tested negative for the flu. His CXR revealed progressive pneumonia. He was initiated on aggressive IVF, empiric levofloxacin and cefepime (now changed to vancomycin/cefepime). We were asked to admit the patient for further care. His heart rate did not respond to an IV dose of digoxin. With the IVF, the patient's SBP did improve to 90's. At that point, he was given a bolus of IV cardizem and initiated on a low dose cardizem gtt at 2.5 mg/hr. The patient states he is not sure when he went into Afib. He didn't feel it. He thinks that maybe he felt palpitations, but he is not sure of that either. He denies dizziness, chest pain. Review of Systems Narrative: 12 systems reviewed. Pertinent positives and negatives are as per HPI. PFS Family History (Updated 11/26/19 @ 18:49 by Sarah Hamm MD) Other Adopted Social History (Updated 11/26/19 @ 18:49 by Sarah Hamm MD) Smoking/Tobacco Use Status: Never Alcohol Intake: current Alcohol Intake frequency: holidays/special occasions only Drug use: Never Substance use type: does not use Do you feel safe in your relationship?: Yes Meds Home Medications and Allergies Home Medications Medication Instructions Recorded Confirmed Type hydroxyzine HCl 10 mg tablet 10 mg PO BID PRN #90 tab 09/20/18 11/26/19 History lisinopril 5 mg tablet 5 mg PO DAILY #90 tab 03/01/19 11/26/19 Rx fluticasone 500 mcg-salmeterol 50 1 inh INHALATION BID #2 each 08/09/19 11/26/19 Rx mcg/dose blistr powdr for inhalation lorazepam 1 mg tablet 1 mg PO HS PRN #60 tab-cap 08/09/19 11/26/19 Rx albuterol sulfate 2.5 mg INHALATION Q4H PRN #2 box 09/13/19 11/26/19 Rx albuterol sulfate 90 mcg/actuation 2 puff IH QID PRN #18 gm 10/04/19 11/26/19 Rx aerosol inhaler dupilumab 200 mg/1.14 mL 200 mg SC Q3W ml 10/07/19 11/26/19 History subcutaneous syringe tiotropium bromide 18 mcg capsule 18 mcg INHALATION DAILY #1 tab-cap 11/12/19 11/26/19 Rx with inhalation device azithromycin 250 mg tablet See Rx Instructions PO .COMPLEX #6 11/25/19 11/26/19 Rx tab oseltamivir 75 mg capsule 75 mg PO BID #10 cap 11/25/19 11/26/19 Rx prednisone 10 mg tablet 10 mg PO DAILY #30 tab 11/25/19 11/26/19 Rx Allergies Allergy/AdvReac Type Severity Reaction Status Date / Time methotrexate AdvReac Severe weight loss Verified 11/26/19 12:09 DOG DANDER Allergy Mild Uncoded 11/26/19 12:09 DUST Allergy Mild Uncoded 11/26/19 12:09 POLLEN EXTRACTS Allergy Mild Uncoded 11/26/19 12:09 [place] Allergy Unknown Uncoded 11/26/19 12:09 Exam Narrative Exam Narrative: General: Very pleasant middle-aged male, laying comfortably flat in bed, mentating well, A&Ox3, joking Neurological: A&Ox3, no focal deficits Psychiatric: Appropriate speech pattern/content Skin: visible skin intact HEENT: Atraumatic, normocephalic, EOMI, MMM, clear oropharynx, no pharyngeal erythema, poor dentition, no submandibular or cervical lymphadenopathy, no goiter or JVD Cardiovascular: tachycardic, irregularly irregular rhythm Lungs: quiet expiratory wheezing which I hear more on the L Gastrointestinal: soft, nontender, nondistended Genitourinary: deferred Extremities: no e/c/c BLE's Results Imaging Additional studies: CXR: Progressive pulmonary infiltrates suggesting progressive pneumonia. EKG: HR 150, Afib with RBBB - no prior for comparison. No obvious acute ischemia. Labs Result diagrams: 11/26/19 12:20 11/26/19 12:20 Labs: Laboratory Results - last 24 hr 11/26/19 11/26/19 11/26/19 12:20 12:20 12:20 WBC 22.85 H RBC 4.18 L Hgb 12.6 L Hct 38.2 L MCV 91.4 MCH 30.1 MCHC 33.0 RDW 13.3 Plt Count 234 MPV 9.6 Immature Gran % See Differential Neutrophils % 76.0 Band Neutrophils % 10.0 Lymphocytes % 7.0 Monocytes % 6.0 Eosinophils % 0.0 Basophils % 0.0 Metamyelocytes % 1.0 Absolute Neutrophils 19.65 H Absolute Lymphocytes 1.60 Absolute Monocytes 1.37 H Absolute Eosinophils 0.00 Absolute Basophils 0.00 Differential Comment Manual differential RBC Morphology Normal PT INR Sodium 135 L Potassium 3.9 Chloride 98 Carbon Dioxide 26.3 Anion Gap 10.7 BUN 39 H D Creatinine 2.00 H Estimated GFR/1.73 m2 34.61 Glucose 103 Lactate 2.7 H* Calcium 8.4 L Total Bilirubin 1.2 H AST 14 L ALT 17 Alkaline Phosphatase 65 Total Protein 6.5 Albumin 2.9 L Procalcitonin 11/26/19 11/26/19 12:20 12:20 WBC RBC Hgb Hct MCV MCH MCHC RDW Plt Count MPV Immature Gran % Neutrophils % Band Neutrophils % Lymphocytes % Monocytes % Eosinophils % Basophils % Metamyelocytes % Absolute Neutrophils Absolute Lymphocytes Absolute Monocytes Absolute Eosinophils Absolute Basophils Differential Comment RBC Morphology PT 10.6 INR 1.1 Sodium Potassium Chloride Carbon Dioxide Anion Gap BUN Creatinine Estimated GFR/1.73 m2 Glucose Lactate Calcium Total Bilirubin AST ALT Alkaline Phosphatase Total Protein Albumin Procalcitonin 31.1 Last Vital Signs Temp 37 C 11/26/19 15:23 Pulse 150 H 11/26/19 16:23 Resp 23 11/26/19 15:23 BP 96/47 L 11/26/19 16:23 Pulse Ox 95 11/26/19 15:23
[2019-11-26] MEDS: dilTIAZem 25 MG/5 ML VIAL 5 MG IVP (16:57)
[2019-11-26] MEDS: dilTIAZem 125 MG in Normal Saline 100 ML IV (18:18)
[2019-11-26 18:22] LABS: Lactate 1.7 mmol/L (0.6-1.4)
[2019-11-26 18:42] LABS: Troponin I 0.09 ng/Ml (<0.06)
[2019-11-26 20:08] LABS: Troponin I < 0.05 ng/Ml (<0.06)
[2019-11-26] MEDS: Hydrocortisone SOD SUC. 100 MG VIAL 50 MG IVP (20:55)
[2019-11-27] VITALS (192 sets, daily range): BP systolic 70–119; BP diastolic 45–75; PULSE 71–115; RESP 4–30; TEMP 36.5–36.9; O2SAT 86–99
[2019-11-27] MEDS: Normal Saline 1,000 ML 200 ML IV (00:40)
[2019-11-27 01:26] LABS: PTT Activated 62.8 sec (21.0-31.4)
[2019-11-27] MEDS: CEFEPIME 2 GM in Normal Saline 100 ML IVPB ×3 (03:29→20:05)
[2019-11-27] MEDS: Normal Saline Flush 10 ML SYR IVP ×3 (03:30→16:30)
[2019-11-27] MEDS: Hydrocortisone SOD SUC. 100 MG VIAL 50 MG IVP ×3 (03:30→16:29)
[2019-11-27] MEDS: Albuterol/Ipratropium 3 ML UPD VIAL UPD (05:52)
[2019-11-27] MEDS: dilTIAZem 125 MG in Normal Saline 100 ML 7.5 MG IV (06:05)
[2019-11-27 07:13] LABS: Abs Immature Grans 0.07 k/cumm (0.0-0.09); Absolute Neutrophil Count 15.29 k/cumm (1.2-6.7); Basophils % 0.1; HCT 31.1 % (40.0-50.0); HGB 10.1 g/dL (13.5-17.5); Immature Grans % 0.4 %; Lymphocytes % 8.6; Mean Corp. HGB Concentration 32.5 g/dL (32.0-36.0); Mean Corpuscular Hemoglobin 29.7 pg (27.0-33.0); Mean Corpuscular Volume 91.5 fL (80-95); Mean Platelet Volume 9.5 fL (8.0-11.0); Monocytes % 2.9; Platelet Count 187 x1000/uL (130-400); RBC Distribution Width 13.1 % (11.8-14.1); White Blood Cell Count 17.37 k/cumm (4.4-10.8)
[2019-11-27 07:19] LABS: Absolute Basophil Count 0.02 k/cumm (0.0-0.2); Absolute Lymphocyte Count 1.49 k/cumm (1.2-3.4)
[2019-11-27 07:30] LABS: Magnesium 1.6 mg/dL (1.8-2.4)
[2019-11-27 07:32] LABS: Troponin I 0.27 ng/Ml (<0.06)
[2019-11-27 07:35] LABS: ALT 15 U/L (16-63); AST 15 U/L (15-37); Alkaline Phosphatase 52 U/L (46-116); Anion Gap 8.4 mmol/L (3-11); BUN 26 mg/dL (7-18); Bilirubin, Direct 0.18 mg/dL (0.00-0.20); Bilirubin, Total 0.5 mg/dL (0.2-1.0); CO2 22.6 mmol/L (21.0-32.0); CREATININE 1.12 mg/dL (0.70-1.30); Calcium 7.3 mg/dL (8.5-10.1); Chloride 109 mmol/L (98-107); Glucose 138 mg/dL (74-106); Potassium 3.3 mmol/L (3.5-5.1); Sodium 140 mmol/L (136-145); TSH (W/Ref FT4) 0.74 uIU/mL (0.36-3.74); Total Protein 5.1 g/dL (6.4-8.2)
[2019-11-27 08:04] LABS: Lactate 1.9 mmol/L (0.6-1.4)
[2019-11-27 08:28] LABS: C-Reactive Protein 20.03 mg/dL (0.0-0.3); NT-proBNP 3818 pg/mL (<300)
--- NOTE | 2019-11-27 08:46 | W.PM.PROGNOT ---
Date of Service Date of service: 11/27/19 Time of Service: 11:21 Assessment and Plan Assessment and plan (1) Septic shock: Status: Resolved Assessment and plan: Due to pneumonia with gram negative cocco bacilli bacteremia, present on admission. Overall much better. BP's, heart rate, leucocytosis, lactates are all moving in the right direction. Repeat blood cultures in am. Titrate IVF down. Await echo result. Add levofloxacin to empiric vanco/cefepime (day 2). Start to taper stress dose steroids. (2) Rapid atrial fibrillation: Status: Acute Assessment and plan: Improved HR on cardizem gtt which we have been successfully been able to titrate up since the blood pressures have improved. Continue heparin gtt. Await echo. Likely the cause of elevated troponin. Exchange duonebs and albuterol for xopenex with scheduled atrovent. (3) CAP (community acquired pneumonia): Status: Acute Assessment and plan: As above - repeat CXR today. (4) Asthma with acute exacerbation: Status: Acute Assessment and plan: As above. Start to taper stress dose steroids. Treat pneumonia as above. Now that HR is better, reintroduce a long acting beta agonist. Change albuterol for xopenex and duonebs for scheduled atrovent. (5) H/O: hypertension: Status: Acute Assessment and plan: Hold home antihypertensives (6) Elevated troponin: Status: Acute Assessment and plan: In setting of TAMAR, sepsis, and elevated HR, unlikely to represent true ischemia. However, echo is pending for today - and the patient will need an ischemic workup once he is completely over his infection. Will continue to trend troponins until they start to come down. Asa introduced. Check lipids. (7) TAMAR (acute kidney injury): Status: Acute Assessment and plan: Most likely pre-renal, having to do with low perfusion due to HR/hypotension and sepsis. Improved with treatment of septic shock. Decrease IVF, continue monitoring I/O's and daily weights. (8) Lactic acidosis: Status: Acute Assessment and plan: In setting of septic shock, asthma exacerbation, bronchodilator therapy. Improved. Continue to monitor. (9) DVT prophylaxis: Status: Acute Assessment and plan: On therapeutic heparin gtt (10) Discharge planning issues: Status: Acute Assessment and plan: Full code. Keep in ICU for the remainder of the day. Total Critical Care Time 60 minutes. Subjective Subjective Interval history since last seen: Mr Maier states he feels a lot better today. He denies dizziness, states his chest tightness has improved, denies shortness of breath, nausea, abdominal pain. He remains on cardizem gtt - rate just increased to 10 mg/hr. HR low 100's. SBPs in 110's. Still in Afib. Was not febrile overnight. Blood cultures positive in both aerobic bottles - gram negative cocco bacilli - microbiology suspects H. Flu. Elevated troponin - no chest pain. EKG without acute ischemia. Not requiring O2. Exam Narrative Exam Narrative: General: Very pleasant middle-aged male, A&Ox3, sitting up in a chair, looks much better HEENT: EOMI, MMM, poor dentition Heart: irregularly irregular rhythm, mildly tachycardic Lungs: quiet crackles at B bases Abdomen: soft, nontender, nondistended Extremities: no e/c/c BLE's. Objective Objective Clinical Data: Abnormal lab results 11/26/19 11/26/19 11/26/19 Range/Units 12:20 12:20 12:20 WBC 22.85 H (4.4-10.8) k/cumm RBC 4.18 L (4.50-6.00) m/cumm Hgb 12.6 L (13.5-17.5) g/dL Hct 38.2 L (40.0-50.0) % Absolute Neutrophils 19.65 H (1.2-6.7) k/cumm Absolute Monocytes 1.37 H (0.11-0.7) k/cumm APTT (21.0-31.4) sec Sodium 135 L (136-145) mmol/L Potassium (3.5-5.1) mmol/L Chloride (98-107) mmol/L BUN 39 H D (7-18) mg/dL Creatinine 2.00 H (0.70-1.30) mg/dL Glucose (74-106) mg/dL Lactate 2.7 H* (0.6-1.4) mmol/L Calcium 8.4 L (8.5-10.1) mg/dL Magnesium (1.8-2.4) mg/dL Total Bilirubin 1.2 H (0.2-1.0) mg/dL AST 14 L (15-37) U/L ALT (16-63) U/L Troponin I (<0.06) ng/Ml C-Reactive Protein (0.0-0.3) mg/dL NT-Pro-B Natriuret Pep (<300) pg/mL Total Protein (6.4-8.2) g/dL Albumin 2.9 L (3.4-5.0) g/dL 11/26/19 11/26/19 11/27/19 Range/Units 18:07 18:07 01:00 WBC (4.4-10.8) k/cumm RBC (4.50-6.00) m/cumm Hgb (13.5-17.5) g/dL Hct (40.0-50.0) % Absolute Neutrophils (1.2-6.7) k/cumm Absolute Monocytes (0.11-0.7) k/cumm APTT (21.0-31.4) sec Sodium (136-145) mmol/L Potassium (3.5-5.1) mmol/L Chloride (98-107) mmol/L BUN (7-18) mg/dL Creatinine (0.70-1.30) mg/dL Glucose (74-106) mg/dL Lactate 1.7 H (0.6-1.4) mmol/L Calcium (8.5-10.1) mg/dL Magnesium (1.8-2.4) mg/dL Total Bilirubin (0.2-1.0) mg/dL AST (15-37) U/L ALT (16-63) U/L Troponin I 0.09 H* 0.20 H* (<0.06) ng/Ml C-Reactive Protein (0.0-0.3) mg/dL NT-Pro-B Natriuret Pep (<300) pg/mL Total Protein (6.4-8.2) g/dL Albumin (3.4-5.0) g/dL 11/27/19 11/27/19 11/27/19 Range/Units 01:00 06:55 06:55 WBC (4.4-10.8) k/cumm RBC (4.50-6.00) m/cumm Hgb (13.5-17.5) g/dL Hct (40.0-50.0) % Absolute Neutrophils (1.2-6.7) k/cumm Absolute Monocytes (0.11-0.7) k/cumm APTT 62.8 H (21.0-31.4) sec Sodium (136-145) mmol/L Potassium 3.3 L (3.5-5.1) mmol/L Chloride 109 H (98-107) mmol/L BUN 26 H D (7-18) mg/dL Creatinine (0.70-1.30) mg/dL Glucose 138 H (74-106) mg/dL Lactate (0.6-1.4) mmol/L Calcium 7.3 L (8.5-10.1) mg/dL Magnesium 1.6 L (1.8-2.4) mg/dL Total Bilirubin (0.2-1.0) mg/dL AST (15-37) U/L ALT 15 L (16-63) U/L Troponin I 0.27 H* (<0.06) ng/Ml C-Reactive Protein 20.03 H (0.0-0.3) mg/dL NT-Pro-B Natriuret Pep 3818 H (<300) pg/mL Total Protein 5.1 L (6.4-8.2) g/dL Albumin 2.0 L (3.4-5.0) g/dL 11/27/19 11/27/19 Range/Units 06:55 07:50 WBC 17.37 H (4.4-10.8) k/cumm RBC 3.40 L (4.50-6.00) m/cumm Hgb 10.1 L D (13.5-17.5) g/dL Hct 31.1 L (40.0-50.0) % Absolute Neutrophils 15.29 H (1.2-6.7) k/cumm Absolute Monocytes (0.11-0.7) k/cumm APTT (21.0-31.4) sec Sodium (136-145) mmol/L Potassium (3.5-5.1) mmol/L Chloride (98-107) mmol/L BUN (7-18) mg/dL Creatinine (0.70-1.30) mg/dL Glucose (74-106) mg/dL Lactate 1.9 H (0.6-1.4) mmol/L Calcium (8.5-10.1) mg/dL Magnesium (1.8-2.4) mg/dL Total Bilirubin (0.2-1.0) mg/dL AST (15-37) U/L ALT (16-63) U/L Troponin I (<0.06) ng/Ml C-Reactive Protein (0.0-0.3) mg/dL NT-Pro-B Natriuret Pep (<300) pg/mL Total Protein (6.4-8.2) g/dL Albumin (3.4-5.0) g/dL Vital Signs Temperature 36.8 C 11/27/19 02:39 Temperature Source Tympanic 11/27/19 02:39 Pulse 110 H 11/27/19 06:10 Pulse 98 H 11/27/19 05:10 Respiratory Rate 20 11/27/19 05:11 Respiratory Effort 11/27/19 02:39 Respiratory Depth Normal 11/27/19 02:39 Respiratory Pattern Normal 11/27/19 02:39 Blood Pressure 107/55 L 11/27/19 06:10 Blood Pressure Mean 66 11/27/19 05:00 Blood Pressure Position Supine 11/27/19 02:39 Pulse Oximetry 94 L 11/27/19 05:11 Oxygen Delivery Method Room Air 11/26/19 23:45 Oxygen Flow Rate 0 11/26/19 23:45 Pain Level 0 11/27/19 02:39 Intake & Output 11/26/19 11/26/19 11/27/19 11:59 23:59 11:59 Intake Total 4589.25 / 4589.25 2536.667 / 2536.667 Output Total 1375 / 1475 200 / 200 Balance 3214.25 / 3114.25 2336.667 / 2336.667 Weight 77.2 kg 75.3 kg Intake: IV 4589.25 / 4589.25 2176.667 / 2176.667 Oral 360 / 360 Output: Urine 1375 / 1475 200 / 200 Other: Urine Color Pale Yellow Yellow Urine Appearance Clear Clear Urine Odor None None Comment voided 200cc's just after admission with a negative dipstick and sg of 1.010 Voiding Methods Urinal Urinal Laboratory Results WBC 17.37 k/cumm (4.4-10.8) H 11/27/19 06:55 RBC 3.40 m/cumm (4.50-6.00) L 11/27/19 06:55 Hgb 10.1 g/dL (13.5-17.5) L D 11/27/19 06:55 Hct 31.1 % (40.0-50.0) L 11/27/19 06:55 MCV 91.5 fL (80-95) 11/27/19 06:55 MCH 29.7 pg (27.0-33.0) 11/27/19 06:55 MCHC 32.5 g/dL (32.0-36.0) 11/27/19 06:55 RDW 13.1 % (11.8-14.1) 11/27/19 06:55 Plt Count 187 x1000/uL (130-400) 11/27/19 06:55 MPV 9.5 fL (8.0-11.0) 11/27/19 06:55 Immature Gran % 0.4 % 11/27/19 06:55 Neutrophils % 88.0 11/27/19 06:55 Band Neutrophils % 10.0 % 11/26/19 12:20 Lymphocytes % 8.6 11/27/19 06:55 Monocytes % 2.9 11/27/19 06:55 Eosinophils % 0.0 11/27/19 06:55 Basophils % 0.1 11/27/19 06:55 Metamyelocytes % 1.0 % 11/26/19 12:20 Absolute Neutrophils 15.29 k/cumm (1.2-6.7) H 11/27/19 06:55 Absolute Lymphocytes 1.49 k/cumm (1.2-3.4) 11/27/19 06:55 Absolute Monocytes 0.50 k/cumm (0.11-0.7) 11/27/19 06:55 Absolute Eosinophils 0.00 k/cumm (0.0-0.7) 11/27/19 06:55 Absolute Basophils 0.02 k/cumm (0.0-0.2) 11/27/19 06:55 Differential Comment Manual differential 11/26/19 12:20 RBC Morphology Normal 11/26/19 12:20 PT 10.6 sec (9.3-11.0) 11/26/19 12:20 INR 1.1 (0.9-1.1) 11/26/19 12:20 APTT 62.8 sec (21.0-31.4) H 11/27/19 01:00 Sodium 140 mmol/L (136-145) 11/27/19 06:55 Potassium 3.3 mmol/L (3.5-5.1) L 11/27/19 06:55 Chloride 109 mmol/L (98-107) H 11/27/19 06:55 Carbon Dioxide 22.6 mmol/L (21.0-32.0) 11/27/19 06:55 Anion Gap 8.4 mmol/L (3-11) 11/27/19 06:55 BUN 26 mg/dL (7-18) H D 11/27/19 06:55 Creatinine 1.12 mg/dL (0.70-1.30) D 11/27/19 06:55 Estimated GFR/1.73 m2 >= 60.00 (mL/min/1.73m2) 11/27/19 06:55 Glucose 138 mg/dL (74-106) H 11/27/19 06:55 Lactate 1.9 mmol/L (0.6-1.4) H 11/27/19 07:50 Calcium 7.3 mg/dL (8.5-10.1) L 11/27/19 06:55 Magnesium 1.6 mg/dL (1.8-2.4) L 11/27/19 06:55 Total Bilirubin 0.5 mg/dL (0.2-1.0) 11/27/19 06:55 Conjugated Bilirubin 0.18 mg/dL (0.00-0.20) 11/27/19 06:55 AST 15 U/L (15-37) 11/27/19 06:55 ALT 15 U/L (16-63) L 11/27/19 06:55 Alkaline Phosphatase 52 U/L (46-116) 11/27/19 06:55 Troponin I 0.27 ng/Ml (<0.06) H* 11/27/19 06:55 C-Reactive Protein Cancelled 11/27/19 07:50 NT-Pro-B Natriuret Pep 3818 pg/mL (<300) H 11/27/19 06:55 Total Protein 5.1 g/dL (6.4-8.2) L 11/27/19 06:55 Albumin 2.0 g/dL (3.4-5.0) L 11/27/19 06:55 Procalcitonin 31.1 ng/mL 11/26/19 12:20 TSH 0.74 uIU/mL (0.36-3.74) 11/27/19 06:55
[2019-11-27] MEDS: MAGNESIUM SULFATE 2 GM/50 ML BAG IVPB (09:09)
[2019-11-27] MEDS: Aspirin E.C. 325 MG TABEC PO (09:27)
[2019-11-27] MEDS: Potassium Chloride 20 MEQ TABCR 40 MEQ PO (09:29)
--- NOTE | 2019-11-27 09:48 | INITIAL_ITS ---
- If Service Date Differs Date of service: 11/27/19 Time of Service: 09:48 Care Management Initial Assess REASON FOR HOSPITALIZATION:: Septic Shock, pneumonia PAST MEDICAL HISTORY/PAST SURGICAL HISTORY:: Peptic ulcer, hyperlipidemia, hearing loss, essential hypertension, erosive gastritis, colitis, asthma, amblyopia. Surgical history: Hernia repair PREVIOUS FUNCTIONAL STATUS/SOCIAL/FAMILY SUPPORTS:: Jasson lives with his spouse in [facility], he is independent with ADLs and transportation. 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 CURRENT FUNCTIONAL STATUS:: Jasson is alert and engaged with CM during assessment. His significant other is in the room, asking appropriate questions related to Jasson's illness. Jasson does discuss his illness he feels that he waited to long to come to the hospital. He states he thought maybe it was his asthma and waited to see if he improved. He does have a nebulizer at home however its about 20 years old he is requesting a new one which CM will review with RT. ADVANCE DIRECTIVES:: None on file, CM offered forms and assistance in completion. Has patient been provided with information about the portal?: Yes Did the patient sign up for the portal?: No CODE STATUS:: Full Code INSURANCE COVERAGE / FINANCIAL ISSUES:: [employer] CURRENT HOME/COMMUNITY SERVICES/EQUIPMENT:: None PRIMARY CARE PHYSICIAN:: Chan Osman MD POTENTIAL DISCHARGE NEEDS:: Follow-up appointment scheduled with primary care prior to discharge PATIENT/FAMILY EDUCATION NEEDS:: Discharge education, limitations, follow-up plan of care, asked me 3 and self-management. ANTICIPATED BARRIERS TO DISCHARGE:: None TRANSPORTATION:: Via private car with family at time of discharge PLAN:: Pato be discharged home when medically ready. Anticipate no additional services at time of discharge. CM to continue to provide support ongoing discharge planning and disposition.
[2019-11-27] MEDS: guaiFENesin 600 MG TABCR PO ×2 (12:21→20:06)
[2019-11-27 12:59] LABS: Troponin I 0.29 ng/Ml (<0.06)
--- NOTE | 2019-11-27 13:42 | DI.RAD_ITS ---
EXAM: XR PORTABLE CHEST AP INDICATION: FOLLOW UP PNEUMONIA, QUESTION OF PULMONARY EDEMA. COMPARISON: No exams were available for comparison TECHNIQUE: 2D digital imaging was performed. FINDINGS: The heart size and pulmonary vasculature are stable and within normal limits. There are stable bilat eral pulmonary infiltrates present. There is a stable small left pleural effusion. No pneumothorax is identified. IMPRESSION: Stable bilateral pneumonia.
--- NOTE | 2019-11-27 14:13 | PHARADMIT ---
Addendum entered by Ok Hong III 11/29/19 12:13: Pharmacy Note Subjective Transferred to med/surg, feeling better. Waiting for pic line placement Objective VS-OK, Labs OK WBC-lower, Assessment On Rocephin 2gm IV q24hrs. Diltiazem to 300mg PO daily. To start Eliqis. Hepparin DC'd Plan To receive Rocephin as home therapy or through our infusion room. Addendum entered by Rachelle Gill 11/28/19 14:22: Pharmacy Note Subjective Pt states he does not feel much better, crackles, short of breath Objective HR up to 110 this AM otherwise 70-80's; BP 115/70, lytes ok, SCr 0.93, WBC 15.55 (down from 22.85), Trop 0.17, Blood culture + for haemophilus species negative for presence of beta lactamase Assessment VANC+LEVO+CEFEPIME all dc'd and ceftriaxone started; cardizem gtt dc'd and PO started; xopenex and atrovent nebs were ordered in place of albuterol Plan Cont dilt 90mg q6h and monitor HR and troponin cont nebs, inhalers and WBC for improvement of CAP Original Note: Admission Pharmacy Clinical Review Septic shock due to right middle lobe pneumonia, Rapid AFib Code Status Full Code Current Weight 75.3 kg Renally Cleared and Narrow Therapeutic Index Meds CrCl ~65ML/MIN, meds ok QTc Value / Action Taken QTc 470 BP Control, Fever BP 117/66 (as low as 77/48), afebrile, HR 103 Electrolytes reviewed NA 140, K+ 3.3, Mag 1.6 (replaced with 40meq po K, and 2g IV mag) DVT Prophylaxis Heparin gtt Opiate Usage / Scheduled Bowel Regimen Ordered none, PRN Plt/SCr for Heparin / Enoxaparin plt 187, Scr 1.12 (down from 2.0) INR for Warfarin H/H stable, WBC/Bands H/H 10.1/31.1, WBC 17.37 (down from 22.85) Antibiotic appropriateness Cefepime + Vanco + Levaquin Cultures and Sensitivities Blood: gram - cocco bacilli; repeat blood and sputum pending Surgical ABX d/c within 24 hr DM control / Insulin Dosing Heart Failure (Check EF%) (MIGUEL's, B-Block, Diuretics) Cardizem gtt started 11/26 @ 1800 IV to PO Switch Home Meds Reviewed Yes, all ok Home Meds Not Ordered Dupixent = MAB dosed [id number], spiriva, advair (symbicort ordered) Comments Cardizem rate inc to 10mg/hr today Elevated troponin (0.29) TAMAR improved with septic shock tx
--- NOTE | 2019-11-27 14:32 | W.NUTCONSULT ---
Date of service: 11/27/19 Time of Service: 14:32 Nutritional Consult ASSESSMENT: 59 year old male admitted with septic shock secondary to PNA. PMH: asthma, erosive gastritis, peptic ulcer dx. Following Heart Healthy Diet with excellent intake. BMI wnl. Not considered at nutritional risk at this time. MONITORING AND EVALUATION: PO intake, weight, labs Time Spent in Nutritional Counseling and Treatment: 0 time spent face to face
[2019-11-27] MEDS: Ipratropium 0.5 MG/2.5 ML UPD VIAL UPD ×2 (14:51→18:29)
[2019-11-27] MEDS: Budesonide/Formoterol 160/4.5 6 GM 60 PUFF INH IH ×2 (14:55→20:04)
[2019-11-27] MEDS: levoFLOXacin 750 MG/150 ML BAG 100 MG IVPB (15:05)
[2019-11-27] MEDS: Normal Saline 1,000 ML 150 ML IV (16:00)
[2019-11-27] MEDS: Pantoprazole 40 MG VIAL IVP (16:20)
[2019-11-27] MEDS: dilTIAZem 60 MG TAB PO (18:29)
[2019-11-27 21:27] LABS: PTT Activated 42.1 sec (21.0-31.4)
[2019-11-27] MEDS: LORazepam 1 MG TAB PO (22:28)
[2019-11-28] VITALS (31 sets, daily range): BP systolic 98–125; BP diastolic 56–77; PULSE 74–112; RESP 2–27; TEMP 35.7–37.1; O2SAT 86–97
[2019-11-28] MEDS: Hydrocortisone SOD SUC. 100 MG VIAL 50 MG IVP ×4 (00:01→23:55)
[2019-11-28] MEDS: CEFEPIME 2 GM in Normal Saline 100 ML IVPB ×2 (04:53→13:13)
[2019-11-28] MEDS: Levalbuterol 1.25 MG/3 ML UPD VIAL UPD ×2 (04:53→14:48)
[2019-11-28] MEDS: Normal Saline Flush 10 ML SYR IVP ×5 (04:54→23:55)
[2019-11-28 05:47] LABS: Abs Immature Grans 0.12 k/cumm (0.0-0.09); Absolute Basophil Count 0.02 k/cumm (0.0-0.2); Absolute Lymphocyte Count 1.18 k/cumm (1.2-3.4); Absolute Monocyte Count 0.58 k/cumm (0.11-0.7); Absolute Neutrophil Count 13.65 k/cumm (1.2-6.7); Basophils % 0.1; HCT 32.1 % (40.0-50.0); HGB 10.8 g/dL (13.5-17.5); Immature Grans % 0.8 %; Lymphocytes % 7.6; Mean Corp. HGB Concentration 33.6 g/dL (32.0-36.0); Mean Corpuscular Hemoglobin 30.3 pg (27.0-33.0); Mean Corpuscular Volume 89.9 fL (80-95); Mean Platelet Volume 9.8 fL (8.0-11.0); Monocytes % 3.7; Neutrophils % 87.8; Platelet Count 226 x1000/uL (130-400); RBC 3.57 m/cumm (4.50-6.00); White Blood Cell Count 15.55 k/cumm (4.4-10.8)
[2019-11-28 06:08] LABS: ALT 15 U/L (16-63); AST 12 U/L (15-37); Alkaline Phosphatase 57 U/L (46-116); Anion Gap 11.8 mmol/L (3-11); BUN 23 mg/dL (7-18); Bilirubin, Direct 0.09 mg/dL (0.00-0.20); Bilirubin, Total 0.3 mg/dL (0.2-1.0); C-Reactive Protein 8.89 mg/dL (0.0-0.3); CO2 21.2 mmol/L (21.0-32.0); CREATININE 0.93 mg/dL (0.70-1.30); Calcium 7.6 mg/dL (8.5-10.1); Chloride 110 mmol/L (98-107); Glucose 121 mg/dL (74-106); Potassium 3.5 mmol/L (3.5-5.1); Sodium 143 mmol/L (136-145); Total Protein 5.4 g/dL (6.4-8.2)
[2019-11-28 06:12] LABS: Troponin I 0.17 ng/Ml (<0.06)
[2019-11-28 06:40] LABS: Calculated LDL 63 mg/dL (<100); Cholesterol 118 mg/dL (<200); HDL Cholesterol 33 mg/dL (40-60); Triglyceride 111 mg/dL (<150)
[2019-11-28] MEDS: Ipratropium 0.5 MG/2.5 ML UPD VIAL UPD ×5 (07:27→23:55)
[2019-11-28] MEDS: dilTIAZem 60 MG TAB PO ×2 (07:27)
[2019-11-28] MEDS: Aspirin E.C. 81 MG TABEC PO (07:31)
[2019-11-28] MEDS: guaiFENesin 600 MG TABCR PO ×2 (07:31→20:34)
[2019-11-28 07:36] LABS: PTT Activated 42.1 sec (21.0-31.4)
[2019-11-28 08:03] LABS: Lactate 1.2 mmol/L (0.6-1.4)
--- NOTE | 2019-11-28 08:21 | PGE_ITS ---
Date of Service Date of service: 11/28/19 Time of Service: 16:13 Assessment and Plan Assessment and plan (1) Septic shock: Status: Resolved Assessment and plan: Due to pneumonia with Haemophilus (spp still pending; beta lactamse neg), present on admission. Overall much better. Repeat blood cultures pending. No clinical suspicion for endocarditis at this time. Will narrow abx down to IV ceftriaxone 2 grams Q24 hrs. If repeat blood cx are negative, would place a PICC line and discharge home with outpatient infusions vs home abx. (2) Rapid atrial fibrillation: Status: Acute Assessment and plan: Hr Better. Transitioned to PO cardizem. Transfer out of ICU. Keep on tele with prn IV lopressor. (3) CAP (community acquired pneumonia): Status: Acute Assessment and plan: CXR is showing a new area of consolidation, but the remainder of clinical picture has drastically improved. Abx are being changed as above. (4) Asthma with acute exacerbation: Status: Acute Assessment and plan: As above. Keep steroid dose same. Treat pneumonia as above. Continue long acting beta agonist. Continue xopenex and atrovent. (5) H/O: hypertension: Status: Acute Assessment and plan: Hold home antihypertensives (6) Elevated troponin: Status: Acute Assessment and plan: In setting of TAMAR, sepsis, and elevated HR, unlikely to represent true ischemia. Echo w/o signs of abnormal wall motion. Continue asa. LDL at goal. (7) TAMAR (acute kidney injury): Status: Resolved Assessment and plan: Most likely pre-renal, having to do with low perf usion due to HR/hypotension and sepsis. D/c IVF. continue monitoring I/O's and daily weights. (8) Lactic acidosis: Status: Resolved Assessment and plan: In setting of septic shock, asthma exacerbation, bronchodilator therapy. Resolved (9) DVT prophylaxis: Status: Acute Assessment and plan: On therapeutic heparin gtt (10) Discharge planning issues: Status: Acute Assessment and plan: Full code. transfer out of ICU to [facility] with tele. Subjective Subjective Interval history since last seen: Reports tightness in chest this morning while in bed. [place] better sitting up. nebs do make it better. Nursing reports crackles - bibasilar. More short of breath today than he was yesterday, per nursing. HR up to 110-120's. Off drip. 90's at rest when diltiazem was increased. Denies dizziness, chest pain, was reporting belching. No nausea. Exam Narrative Exam Narrative: General: Very pleasant middle-aged male, A&Ox3, sitting up in a chair, looks better to me HEENT: EOMI, MMM, poor dentition Heart: irregularly irregular rhythm, mildly tachycardic, no m/r/g Lungs: quiet crackles at B bases Abdomen: soft, nontender, nondistended Extremities: no e/c/c BLE's. Objective Objective Clinical Data: Abnormal lab results 11/27/19 11/27/19 11/27/19 Range/Units 06:55 12:12 21:05 WBC (4.4-10.8) k/cumm RBC (4.50-6.00) m/cumm Hgb (13.5-17.5) g/dL Hct (40.0-50.0) % Absolute Neutrophils (1.2-6.7) k/cumm Absolute Lymphocytes (1.2-3.4) k/cumm APTT 42.1 H (21.0-31.4) sec Potassium 3.3 L (3.5-5.1) mmol/L Chloride 109 H (98-107) mmol/L Anion Gap (3-11) mmol/L BUN 26 H D (7-18) mg/dL Glucose 138 H (74-106) mg/dL Calcium 7.3 L (8.5-10.1) mg/dL AST (15-37) U/L ALT 15 L (16-63) U/L Troponin I 0.29 H* (<0.06) ng/Ml C-Reactive Protein 20.03 H (0.0-0.3) mg/dL NT-Pro-B Natriuret Pep 3818 H (<300) pg/mL Total Protein 5.1 L (6.4-8.2) g/dL Albumin 2.0 L (3.4-5.0) g/dL HDL Cholesterol (40-60) mg/dL 11/28/19 11/28/19 11/28/19 Range/Units 05:10 05:10 05:12 WBC 15.55 H (4.4-10.8) k/cumm RBC 3.57 L (4.50-6.00) m/cumm Hgb 10.8 L (13.5-17.5) g/dL Hct 32.1 L (40.0-50.0) % Absolute Neutrophils 13.65 H (1.2-6.7) k/cumm Absolute Lymphocytes 1.18 L (1.2-3.4) k/cumm APTT 42.1 H (21.0-31.4) sec Potassium (3.5-5.1) mmol/L Chloride 110 H (98-107) mmol/L Anion Gap 11.8 H (3-11) mmol/L BUN 23 H (7-18) mg/dL Glucose 121 H (74-106) mg/dL Calcium 7.6 L (8.5-10.1) mg/dL AST 12 L (15-37) U/L ALT 15 L (16-63) U/L Troponin I 0.17 H* (<0.06) ng/Ml C-Reactive Protein 8.89 H (0.0-0.3) mg/dL NT-Pro-B Natriuret Pep (<300) pg/mL Total Protein 5.4 L (6.4-8.2) g/dL Albumin 2.0 L (3.4-5.0) g/dL HDL Cholesterol 33 L (40-60) mg/dL Vital Signs Temperature 36.6 C 11/28/19 08:12 Temperature Source Temporal Artery Scan 11/27/19 11:31 Pulse 110 H 11/28/19 08:12 Pulse 85 11/28/19 04:00 Respiratory Rate 24 11/28/19 08:12 Respiratory Effort Short of Breath 11/28/19 08:12 Respiratory Depth Shallow 11/28/19 08:12 Respiratory Pattern Tachypnea 11/28/19 08:12 Blood Pressure 115/70 11/28/19 08:12 Blood Pressure Mean 85 11/28/19 08:12 Blood Pressure Position Sitting 11/28/19 00:23 Pulse Oximetry 97 11/28/19 08:12 Oxygen Delivery Method Room Air 11/28/19 08:12 Oxygen Flow Rate 0 11/28/19 08:12 Pain Level 0 11/28/19 08:12 Intake & Output 11/27/19 11/27/19 11/28/19 11:59 23:59 11:59 Intake Total 2774.292 / 3876.409 1102.117 / 3876.409 1537.375 / 1537.375 Output Total 200 / 1450 550 / 1450 1000 / 1000 Balance 2574.292 / 2426.409 552.117 / 2426.409 537.375 / 537.375 Weight 75.3 kg 79.8 kg Intake: IV 2414.292 / 3036.409 622.117 / 3036.409 1387.375 / 1387.375 Oral 360 / 840 480 / 840 150 / 150 Output: Urine 200 / 1450 550 / 1450 1000 / 1000 Other: Urine Color Yellow Yellow Light Anna Urine Appearance Clear Clear Clear Urine Odor None Strong Normal Stool Occult Blood Negative Stool Size Small Stool Characteristics Soft Formed Voiding Methods Urinal Urinal Urinal Laboratory Results WBC 15.55 k/cumm (4.4-10.8) H 11/28/19 05:10 RBC 3.57 m/cumm (4.50-6.00) L 11/28/19 05:10 Hgb 10.8 g/dL (13.5-17.5) L 11/28/19 05:10 Hct 32.1 % (40.0-50.0) L 11/28/19 05:10 MCV 89.9 fL (80-95) 11/28/19 05:10 MCH 30.3 pg (27.0-33.0) 11/28/19 05:10 MCHC 33.6 g/dL (32.0-36.0) 11/28/19 05:10 RDW 13.0 % (11.8-14.1) 11/28/19 05:10 Plt Count 226 x1000/uL (130-400) 11/28/19 05:10 MPV 9.8 fL (8.0-11.0) 11/28/19 05:10 Immature Gran % 0.8 % 11/28/19 05:10 Neutrophils % 87.8 11/28/19 05:10 Band Neutrophils % 10.0 % 11/26/19 12:20 Lymphocytes % 7.6 11/28/19 05:10 Monocytes % 3.7 11/28/19 05:10 Eosinophils % 0.0 11/28/19 05:10 Basophils % 0.1 11/28/19 05:10 Metamyelocytes % 1.0 % 11/26/19 12:20 Absolute Neutrophils 13.65 k/cumm (1.2-6.7) H 11/28/19 05:10 Absolute Lymphocytes 1.18 k/cumm (1.2-3.4) L 11/28/19 05:10 Absolute Monocytes 0.58 k/cumm (0.11-0.7) 11/28/19 05:10 Absolute Eosinophils 0.00 k/cumm (0.0-0.7) 11/28/19 05:10 Absolute Basophils 0.02 k/cumm (0.0-0.2) 11/28/19 05:10 Differential Comment Manual differential 11/26/19 12:20 RBC Morphology Normal 11/26/19 12:20 PT 10.6 sec (9.3-11.0) 11/26/19 12:20 INR 1.1 (0.9-1.1) 11/26/19 12:20 APTT 42.1 sec (21.0-31.4) H 11/28/19 05:12 Sodium 143 mmol/L (136-145) 11/28/19 05:10 Potassium 3.5 mmol/L (3.5-5.1) 11/28/19 05:10 Chloride 110 mmol/L (98-107) H 11/28/19 05:10 Carbon Dioxide 21.2 mmol/L (21.0-32.0) 11/28/19 05:10 Anion Gap 11.8 mmol/L (3-11) H 11/28/19 05:10 BUN 23 mg/dL (7-18) H 11/28/19 05:10 Creatinine 0.93 mg/dL (0.70-1.30) 11/28/19 05:10 Estimated GFR/1.73 m2 >= 60.00 (mL/min/1.73m2) 11/28/19 05:10 Glucose 121 mg/dL (74-106) H 11/28/19 05:10 Lactate 1.2 mmol/L (0.6-1.4) 11/28/19 07:54 Calcium 7.6 mg/dL (8.5-10.1) L 11/28/19 05:10 Magnesium 2.0 mg/dL (1.8-2.4) 11/28/19 05:10 Total Bilirubin 0.3 mg/dL (0.2-1.0) 11/28/19 05:10 Conjugated Bilirubin 0.09 mg/dL (0.00-0.20) 11/28/19 05:10 AST 12 U/L (15-37) L 11/28/19 05:10 ALT 15 U/L (16-63) L 11/28/19 05:10 Alkaline Phosphatase 57 U/L (46-116) 11/28/19 05:10 Troponin I 0.17 ng/Ml (<0.06) H* 11/28/19 05:10 C-Reactive Protein 8.89 mg/dL (0.0-0.3) H 11/28/19 05:10 NT-Pro-B Natriuret Pep 3818 pg/mL (<300) H 11/27/19 06:55 Total Protein 5.4 g/dL (6.4-8.2) L 11/28/19 05:10 Albumin 2.0 g/dL (3.4-5.0) L 11/28/19 05:10 Triglycerides 111 mg/dL (<150) 11/28/19 05:10 Total Cholesterol 118 mg/dL (<200) 11/28/19 05:10 LDL Cholesterol, Calc 63 mg/dL (<100) 11/28/19 05:10 HDL Cholesterol 33 mg/dL (40-60) L 11/28/19 05:10 Procalcitonin 31.1 ng/mL 11/26/19 12:20 TSH 0.74 uIU/mL (0.36-3.74) 11/27/19 06:55 CXR: Portable AP view of the chest was obtained. In comparison with yesterday's examination, note is again made of presumed bilateral pneumonia. There is focal increased radiodensity in right upper lung field since yesterday's examination consistent with worsening consolidation. No other significant change seen.
[2019-11-28] MEDS: Budesonide/Formoterol 160/4.5 6 GM 60 PUFF INH IH ×2 (08:46→20:34)
[2019-11-28] MEDS: dilTIAZem 30 MG TAB PO (08:46)
[2019-11-28] MEDS: guaiFENesin/D-METHORPHAN HB 5 ML CUP 10 ML PO (09:23)
--- NOTE | 2019-11-28 09:28 | DI.RAD_ITS ---
EXAM: XR PORTABLE CHEST AP CLINICAL HISTORY: worsening shortness of breath TECHNIQUE: COMPARISON: XR PORTABLE CHEST AP from 11/27/2019 FINDINGS: Portable AP view of the chest was obtained. In comparison with yesterday's examination, note is agai n made of presumed bilateral pneumonia. There is focal increased radiodensity in right upper lung fi eld since yesterday's examination consistent with worsening consolidation. No other significant ram ge seen. IMPRESSION:
[2019-11-28] MEDS: dilTIAZem 30 MG TAB 90 MG PO ×2 (13:07→18:18)
--- NOTE | 2019-11-28 13:31 | CMPROGNOTE_ITS ---
- If Service Date Differs Date of service: 11/28/19 Time of Service: 13:32 Care Management Progress Note S/O: Jasson was sitting up in bed chatting with his when CM met with him. He was pleasant and cooperative and engaged readily in conversation. Jasson stated that his updraft machine at home is very old and does not work well. He and his asked if it would be possible to get a new one. CM shared the information with the inpatient RT and she informed CM that she is in the process of o btaining one for him. A: Jasson is a 59 year old man admitted on 11/26/2019 with a diagnosis of septic shock P:.Jasson will likely be discharged home when medically ready. Anticipate no additional services at time of discharge. CM to continue to provide support ongoing discharge planning and disposition.
[2019-11-28 14:11] LABS: Vancomycin, Trough 7.4 ug/mL (10.0-20.0)
[2019-11-28] MEDS: Furosemide 20 MG/2 ML VIAL IVP (14:42)
[2019-11-28] MEDS: cefTRIAXone 2 GM/50 ML BAG IVPB (14:42)
[2019-11-28 14:43] LABS: Procalcitonin 6.9 ng/mL
[2019-11-28] MEDS: Mylanta Suspension 30 ML CUP PO (14:43)
[2019-11-28] MEDS: Pantoprazole 40 MG TABCR PO (20:34)
[2019-11-28] MEDS: Ondansetron 4 MG/2 ML VIAL IVP (21:06)
[2019-11-29] VITALS (8 sets, daily range): BP systolic 100–136; BP diastolic 61–82; PULSE 88–111; RESP 2–20; TEMP 36.9–37.7; O2SAT 93–98
[2019-11-29] MEDS: dilTIAZem 30 MG TAB 90 MG PO (06:40)
[2019-11-29] MEDS: Ipratropium 0.5 MG/2.5 ML UPD VIAL UPD ×2 (06:41→12:34)
[2019-11-29 07:32] LABS: Abs Immature Grans 0.53 k/cumm (0.0-0.09); HCT 34.4 % (40.0-50.0); HGB 11.6 g/dL (13.5-17.5); Mean Corp. HGB Concentration 33.7 g/dL (32.0-36.0); Mean Corpuscular Hemoglobin 30.1 pg (27.0-33.0); Mean Corpuscular Volume 89.4 fL (80-95); Mean Platelet Volume 9.9 fL (8.0-11.0); Platelet Count 263 x1000/uL (130-400); RBC 3.85 m/cumm (4.50-6.00); White Blood Cell Count 12.91 k/cumm (4.4-10.8)
[2019-11-29 07:47] LABS: Hemoglobin A1C 5.8 % (3.8-5.6)
[2019-11-29 07:55] LABS: Absolute Lymphocyte Count 1.42 k/cumm (1.2-3.4); Absolute Monocyte Count 0.39 k/cumm (0.11-0.7); Absolute Neutrophil Count 10.84 k/cumm (1.2-6.7)
[2019-11-29 07:56] LABS: Diff Comment Manual Differential; RBC Morphology Normal
[2019-11-29 08:04] LABS: ALT 16 U/L (16-63); AST 10 U/L (15-37); Albumin 2.1 g/dL (3.4-5.0); Alkaline Phosphatase 55 U/L (46-116); Anion Gap 10.5 mmol/L (3-11); BUN 28 mg/dL (7-18); Bilirubin, Total 0.4 mg/dL (0.2-1.0); CO2 24.5 mmol/L (21.0-32.0); CREATININE 0.92 mg/dL (0.70-1.30); Calcium 8.1 mg/dL (8.5-10.1); Chloride 113 mmol/L (98-107); Ferritin 591 ng/mL (26-388); Folate 3.9 ng/mL (8.6-20.0); Glucose 99 mg/dL (74-106); Magnesium 2.1 mg/dL (1.8-2.4); Potassium 3.9 mmol/L (3.5-5.1); Sodium 148 mmol/L (136-145); Total Protein 5.5 g/dL (6.4-8.2); Vitamin B12 359 pg/mL (193-986)
[2019-11-29 08:05] LABS: Troponin I 0.12 ng/Ml (<0.06)
[2019-11-29 08:08] LABS: PTT Activated 33.2 sec (21.0-31.4)
[2019-11-29] MEDS: Budesonide/Formoterol 160/4.5 6 GM 60 PUFF INH IH (08:10)
[2019-11-29 08:14] LABS: Bilirubin, Direct 0.08 mg/dL (0.00-0.20)
[2019-11-29 08:22] LABS: Iron 151 ug/dL (65-175); Total Iron Binding Capacity 134 ug/dL (250-450); Transferrin Sat 113 % (20-55)
[2019-11-29] MEDS: Aspirin E.C. 81 MG TABEC PO (08:34)
[2019-11-29] MEDS: guaiFENesin 600 MG TABCR PO (08:34)
[2019-11-29] MEDS: Hydrocortisone SOD SUC. 100 MG VIAL 50 MG IVP (08:34)
[2019-11-29] MEDS: Pantoprazole 40 MG TABCR PO (08:34)
[2019-11-29] MEDS: Normal Saline Flush 10 ML SYR IVP (08:36)
[2019-11-29] MEDS: dilTIAZem CD 300 MG CAPCR PO (10:06)
[2019-11-29] MEDS: Folic Acid 1 MG TAB PO (10:06)
[2019-11-29] MEDS: Cyanocobalamin 500 MCG TAB 1000 MCG PO (10:06)
[2019-11-29 10:37] LABS: Streptococcus Pneumoniae Ag, U Negative (Negative)
[2019-11-29] MEDS: cefTRIAXone 2 GM/50 ML BAG IVPB (14:43)
--- NOTE | 2019-11-29 14:58 | CHAPLAIN ---
I visited with Jasson's . Jasson was in the shower. I explain my role and offered support. She said she would let Jasson know that I stopped in.
--- NOTE | 2019-11-29 15:13 | DSE_ITS ---
Date of service: 11/29/19 Time of Service: 15:13 DS: Diagnosis Discharge Diagnosis (1) Septic shock: Status: Resolved (2) Bacteremia: Status: Acute Asessment and Plan: Haemophilus parainfluenza, beta-lactamase negative. (3) Rapid atrial fibrillation: Status: Resolved Asessment and Plan: now rate controlled on cardizem CD 300 mg PO daily. Discharging home with a holter monitor. (4) CAP (community acquired pneumonia): Status: Acute (5) Asthma with acute exacerbation: Status: Acute (6) H/O: hypertension: Status: Acute (7) Elevated troponin: Status: Acute Asessment and Plan: Will need outpatient stress testing (8) TAMAR (acute kidney injury): Status: Resolved (9) Lactic acidosis: Status: Resolved Discharge Plan Disposition Patient Disposition: HOME Condition: Improving Discharge Details Chief Complaint: RespSymp Reason For Visit: SEPTIC SHOCK DUE TO RML PNA, RAPID AFIB Admit Date/Time: 11/26/19 13:44 Admit Provider: Sarah Hamm Attending Provider: Sarah Hamm Primary Care Provider: Chan Osman ED Provider: [facility] Course Hospital Course: Mr Maier is a 59 year old male with PMHx of asthma, eczema on IL-4 antagonist therapy, hypertension, erosive gastritis, who was admitted to [facility] ICU on 11/26/2019 in critical condition due to septic shock with the source being CAP. He also had rapid Afib which was difficult to treat in setting of hypotension. He did not require vasopressors, responding to aggressive IVF, antibiotics (empiric vancomycin, cefepime, levofloxacin), and stress dose steroids. As his blood pressures improved, the patient was initiated on cardizem, which succeeded in rate control of the patient. He was anticoagulated with heparin gtt. His blood cultures grew Haemophilus parainfluenza (4 bottles/4 on the original blood draw). Repeat blood cultures done on 11/28/2019 show no growth to date. Once speciation and sensitivities were known, the patient was switched to ceftriaxone 2 grams IV daily. He was transferred out of the ICU on 11/28/2019. He continues to demonstrate both clinical improvement as well as improvement by bloodwork with significant decrease in CRP, procalcitonin, and his leucocytosis. He had a midline placed on 11/29/2019 in preparation for discharge home with outpatient infusions of ceftriaxone 2 grams daily at [facility] infusion room. He will need 11 more doses of antibiotics. He does not require oxygen. Upon our conversation about senior care anticoagulation, the patient is not sure if he wants it yet. His CHADSVASC score is 1, indicating that risk of stroke is relatively low, and aspirin 81 mg PO daily could be used. He is in agreement with that and will discuss anticoagulation further when he goes to follow up with a pick pulling machine tender. He will need to have an outpatient MPI done once he has completed therapy for his bacteremia as he did have mildly elevated troponins, which are difficult to interpret in setting of septic shock and rapid afib. He is being discharged with a 48-hour holter monitor. He will have a short prednisone taper on discharge. He will be prescribed xopenex and atrovent nebulizers and is getting discharged home with a new nebulizer machine. He will need a repeat CXR in 2-6 weeks to document resolution of his disease. He should follow up with his power system operator as well. Care for patient as well as completion of his discharge summary on day of discharge took 1 hour. Home Meds and New Rx's Prescriptions: New dextromethorphan-guaifenesin 10-100 mg/5 mL Syrup 10 ml PO Q4H PRN PRNQty: 0 RF: 0 aspirin 81 mg Tablet,Delayed Release (Dr/Ec) 81 mg PO DAILY Qty: 30 RF: 0 cyanocobalamin (vitamin B-12) [Vitamin B-12] 500 mcg Tablet 1,000 mcg PO DAILY Qty: 60 RF: 0 diltiazem HCl 300 mg Capsule,Extended Release 24hr 300 mg PO QAM Qty: 30 RF: 0 folic acid 1 mg Tablet 1 mg PO DAILY Qty: 30 RF: 0 ipratropium bromide 0.02 % Solution 0.5 mg UPD Q6H Qty: 150 RF: 0 ceftriaxone in dextrose,iso-os 2 gram/50 mL Piggyback 2 g IVPB Q24H Qty: 0 RF: 0 guaifenesin [Mucinex] 600 mg Tablet Extended Release 12hr 600 mg PO BID Qty: 60 RF: 0 levalbuterol HCl 1.25 mg/3 mL Solution For Nebulization 1.25 mg UPD Q4H PRN PRN (Reason: shortness of breath or wheezing) Qty: 90 RF: 3 pantoprazole 40 mg Tablet,Delayed Release (Dr/Ec) 40 mg PO BID@0730,1999 Qty: 30 RF: 0 prednisone 20 mg tablet See Rx Instructions .ROUTE .COMPLEX Qty: 3 RF: 0 furosemide 20 mg tablet 20 mg PO DAILY Qty: 1 RF: 0 Lactobacillus acidophilus 1 billion cell capsule 1,000 mmu cells PO DAILY Qty: 30 RF: 0 Continued hydroxyzine HCl 10 mg tablet 10 mg PO BID PRNQty: 90 RF: 3 fluticasone propion-salmeterol [Advair Diskus] 500-50 mcg/dose blister with device 1 inh Inhalation BID Qty: 2 RF: 12 lorazepam [Ativan] 1 mg tablet 1 mg PO HS PRN (Reason: sleep) Qty: 60 RF: 1 Spiriva with HandiHaler 18 mcg capsule, w/inhalation device 18 mcg Inhalation DAILY Qty: 1 RF: 12 Dupixent 200 mg/1.14 mL syringe 200 mg SC Q3W Qty: 0 RF: 0 Discontinued oseltamivir [Tamiflu] 75 mg capsule 75 mg PO BID Qty: 10 RF: 0 azithromycin 250 mg tablet See Rx Instructions PO .COMPLEX Qty: 6 RF: 0 prednisone 10 mg tablet 10 mg PO DAILY Qty: 30 RF: 1 lisinopril 5 mg tablet 5 mg PO DAILY Qty: 90 RF: 3 albuterol sulfate 2.5 mg /3 mL (0.083 %) solution for nebulization 2.5 mg Inhalation Q4H PRN Qty: 2 RF: 3 albuterol sulfate [ProAir HFA] 90 mcg/actuation HFA aerosol inhaler 2 puff IH QID PRN (Reason: shortness of breath or wheezing) Qty: 18 RF: 8 Discharge Instructions Instructions: Ipratropium (By breathing), Ceftriaxone (Injection), Levalbuterol (By breathing), Heart Healthy Diet (DC), Sepsis (GEN), Bacteremia (DC) Additional Instructions: Come back for daily infusions for 11 days. Try to be here at the same time every day. Return to the hospital with any fever, redness around the midline site, bleeding, chest pain, or shortness of breath. Follow up with your PCP in 3-4 days. Referrals: Chan Osman DO [Primary Care Provider] - Zaire Murdock MD [ CONSULTING PHYSICIAN] - (new onset Afib; patient is not sure about anticoagulation and wants to discuss with you. On cardizem CD 300 mg PO daily, getting discharged with a holter. Also, positive troponins in setting of septic shock. Will need outpatient stress test once completes treatment for bacteremia.) Activity:: Activity as Tolerated Equipment/Supplies:: No Equipment Needed Diet:: Heart healthy Discharge Orders Discharge Orders: Discharge Order (Routine); Ordered 11/29/19 Ordered By: Sarah Hamm Other Ambulatory Orders: Holter Monitor (Outpt) (ONCE) Timeframe: 20191130 Facility: [facility] - Location: Respiratory Therapy Ordered By: Sarah Hamm DS: Summary Status at Discharge Functional status at discharge: independent ambulation Overall status at discharge: patient is progressing back to baseline Mental Status: mental status grossly normal Speech and Movement: speech and movement normal Mood: congruent mood Affect: normal affect Exam Narrative Exam Narrative: General: Very pleasant middle-aged male, A&Ox3, sitting up in a chair, Looks well HEENT: EOMI, MMM, poor dentition Heart: irregularly irregular rhythm, no m/r/g Lungs: very few quiet crackles at B bases Abdomen: soft, nontender, nondistended Extremities: trace edema BLE's, no c/c BLE's. Psych Mental Status: mental status grossly normal Speech and Movement: speech and movement normal Mood: congruent mood Affect: normal affect DS: Data Vitals/I&O Vitals and I&O: Vital Signs Temperature 36.9 C 11/29/19 11:26 Temperature Source Tympanic 11/29/19 11:26 Pulse 98 H 11/29/19 12:44 Pulse Rhythm Irregular 11/29/19 08:45 Pulse 77 11/28/19 18:00 Respiratory Rate 16 11/29/19 12:44 Respiratory Effort Non-Labored 11/29/19 08:45 Respiratory Depth Normal 11/29/19 08:45 Respiratory Pattern Normal 11/29/19 08:45 Blood Pressure 127/80 11/29/19 11:26 Blood Pressure Mean 84 11/28/19 16:00 Blood Pressure Position Sitting 11/28/19 15:30 Pulse Oximetry 98 11/29/19 12:44 Oxygen Delivery Method Room Air 11/29/19 12:35 Oxygen Flow Rate 0 11/29/19 12:35 Pain Level 0 11/29/19 11:26 Comment 11/28/19 23:55 Intake & Output 11/28/19 11/29/19 11/29/19 23:59 11:59 23:59 Intake Total 800 / 2577.375 406.092 / 886.092 480 / 886.092 Output Total 1450 / 2450 200 / 200 Balance -650 / 127.375 206.092 / 686.092 480 / 686.092 Weight 82.2 kg Intake: IV 320 / 1707.375 166.092 / 166.092 Oral 480 / 870 240 / 720 480 / 720 Output: Urine 1450 / 2450 200 / 200 Other: Urine Color Pale Yellow Yellow Urine Appearance Clear Clear Urine Odor None Comment has just been given IV lasix and is voided extremely light colored yellow urine Voiding Methods Urinal Toilet Toilet Data Completed and Pending Completed studies during hospitalization [Text1]: CXR 11/26/2019: Progressive pulmonary infiltrates suggesting progressive pneumonia. CXR 11/27/2019: Stable bilateral pneumonia. CXR 11/28/2019: Portable AP view of the chest was obtained. In comparison with yesterday's examination, note is again made of presumed bilateral pneumonia. There is focal increased radiodensity in right upper lung field since yesterday's examination consistent with worsening consolidation. No other signi ficant change seen. Echo: Left Ventricle The left ventricle is normal size. There is normal left ventricular wall thickness. LVEF is estimated to be 55-60%. Right Ventricle Right ventricle is mildly dilated. Right ventricle is low normal in function Atria The left atrium size is normal. The right atrium size is normal. Aortic Valve Aortic valve is probably trileaflet. There is no aortic valvular stenosis. Mild to moderate aortic regurgitation. Mitral Valve Mitral valve leaflets are mildly thickened. Moderate mitral regurgitation. Tricuspid Valve The tricuspid valve leaflets are thickened , but open well. Mild tricuspid regurgitation. Great Vessels The aortic root is normal in size. The IVC is dilated in size and collapses >50% with inspiration. Labs on day of discharge: Labs from last 24 hours 11/29/19 11/29/19 11/29/19 14:30 06:55 06:55 WBC 12.91 H RBC 3.85 L Hgb 11.6 L Hct 34.4 L MCV 89.4 MCH 30.1 MCHC 33.7 RDW 13.0 Plt Count 263 MPV 9.9 Immature Gran % See Differential Neutrophils % 84.0 Lymphocytes % 11.0 Monocytes % 3.0 Eosinophils % 0.0 Basophils % 0.0 Metamyelocytes % 2.0 Absolute Neutrophils 10.84 H Absolute Lymphocytes 1.42 Absolute Monocytes 0.39 Absolute Eosinophils 0.00 Absolute Basophils 0.00 Differential Comment Manual differential RBC Morphology Normal APTT Cancelled 33.2 H Sodium Potassium Chloride Carbon Dioxide Anion Gap BUN Creatinine Estimated GFR/1.73 m2 Glucose Hemoglobin A1c Calcium Magnesium Iron TIBC Transferrin % Sat Ferritin Total Bilirubin Conjugated Bilirubin AST ALT Alkaline Phosphatase Troponin I Total Protein Albumin Vitamin B12 Folate Ur Strep pneumoniae Ag 11/29/19 11/29/19 11/29/19 06:55 06:55 06:55 WBC RBC Hgb Hct MCV MCH MCHC RDW Plt Count MPV Immature Gran % Neutrophils % Lymphocytes % Monocytes % Eosinophils % Basophils % Metamyelocytes % Absolute Neutrophils Absolute Lymphocytes Absolute Monocytes Absolute Eosinophils Absolute Basophils Differential Comment RBC Morphology APTT Sodium 148 H Potassium 3.9 Chloride 113 H Carbon Dioxide 24.5 Anion Gap 10.5 BUN 28 H Creatinine 0.92 Estimated GFR/1.73 m2 >= 60.00 Glucose 99 Hemoglobin A1c 5.8 H Calcium 8.1 L Magnesium 2.1 Iron 151 TIBC 134 L Transferrin % Sat 113 H Ferritin 591 H Total Bilirubin 0.4 Conjugated Bilirubin 0.08 AST 10 L ALT 16 Alkaline Phosphatase 55 Troponin I 0.12 H* Total Protein 5.5 L Albumin 2.1 L Vitamin B12 359 Folate 3.9 L Ur Strep pneumoniae Ag 11/27/19 03:00 WBC RBC Hgb Hct MCV MCH MCHC RDW Plt Count MPV Immature Gran % Neutrophils % Lymphocytes % Monocytes % Eosinophils % Basophils % Metamyelocytes % Absolute Neutrophils Absolute Lymphocytes Absolute Monocytes Absolute Eosinophils Absolute Basophils Differential Comment RBC Morphology APTT Sodium Potassium Chloride Carbon Dioxide Anion Gap BUN Creatinine Estimated GFR/1.73 m2 Glucose Hemoglobin A1c Calcium Magnesium Iron TIBC Transferrin % Sat Ferritin Total Bilirubin Conjugated Bilirubin AST ALT Alkaline Phosphatase Troponin I Total Protein Albumin Vitamin B12 Folate Ur Strep pneumoniae Ag Negative Preliminary micro results at discharge 11/26/19 12:43 Blood Culture - Preliminary Blood Haemophilus Parainfluenzae 11/26/19 12:43 Blood Culture - Preliminary Blood Haemophilus Parainfluenzae 11/27/19 03:46 Sputum Culture - Preliminary Sputum Normal Radha Soledad Albicans 11/28/19 05:10 Blood Culture - Preliminary Blood NO GROWTH 24 HOURS 11/28/19 05:15 Blood Culture - Preliminary Blood NO GROWTH 24 HOURS PFS Medical History Asthma (Chronic) Erosive gastritis (Chronic 03/03/17) Essential hypertension (Chronic) Hyperlipidemia (Chronic) Peptic ulcer of duodenum (Chronic 03/03/17) Surgical History Colonoscopy - MAC (Inactive 10/11/17) EGD - MAC (Inactive 10/11/17) HERNIA REPAIR (Inactive ~2010) Family History Other Adopted Social History Smoking/Tobacco Use Status: Never Alcohol Intake: current Alcohol Intake frequency: holidays/special occasions only Drug use: Never Substance use type: does not use Do you feel safe in your relationship?: Yes
--- NOTE | 2019-11-29 16:54 | CMDISCH_ITS ---
LACE Index Scoring Tool - Questions: Length of Stay (in days): 3 Acuity (Admit via E.D.?): Yes E.D. Visits: 2 - Answers: Total Score: 8 Risk of Readmission: Low Risk Care Management Discharge Reason for Hospitalization: Septic Shock, pneumonia Discharge Plan: Jasson will discharge home when ready per MD. He will return to the [facility] Infusion daily for IV ABX for the next 11 days. CM notified his insurance company and coordinated MD orders through [employer]; Infusion. Jasson will follow up with his PCP and community based providers (CM faxed DC summary to [facility]) as well as his plan of care as prescribed. Jasson will transport home via private vehicle with his , Mandi Cotton. Patient/Family Education Needs: Review discharge instructions, discuss Ask Me Three. Services Needed at Discharge: Infusion Therapy (Outpatient; [facility] )
[2019-11-29 23:33] LABS: Mycoplasma Pneumoniae PCR Negative; Specimen source SPUTUM
== END 2019-11-29 16:50 | disposition home or self-care (01) | DRG 871 ==
LOC: ER 14:31 → ICU 15:36 → MS 11-28 19:04
PROVIDERS: Family Medicine; Admitting Provider Internal Medicine; Emergency Provider Student in an Organized Health Care Education/Training Program; PCP Emergency Medicine; Visit Provider Internal Medicine
DX: A41.3 Sepsis due to Hemophilus influenzae (principal); R65.21 Severe sepsis with septic shock; J18.1 Lobar pneumonia, unspecified organism; N17.9 Acute kidney failure, unspecified; J45.901 Unspecified asthma with (acute) exacerbation; E87.2 Acidosis; I48.91 Unspecified atrial fibrillation; I10 Essential (primary) hypertension; R79.89 Other specified abnormal findings of blood chemistry; L30.9 Dermatitis, unspecified; Z79.899 Other long term (current) drug therapy
CPT/HCPCS: 36410; 36415; 36569; 80048; 80053; 80061; 80076; 84145; 87040; 87077; 87449; 93005; 94640; 96361; 96365; 99232; 99239; 99291; 71045; 80202; 82607; 82728; 82746; 83036; 83540; 83550; 83605; 83735; 83880; 84443; 84484; 85025; 85610; 85730; 86140; 87070; 87205; 87450; 87581; 93010; 93225; 93306; 94667; J1160; J1720; J1941; J1956; J2405; J7614; J7620; J7644

== ENCOUNTER 2019-12-02 16:57 | Outpatient (CLI) | payer OTHER, SELFPAY ==
--- NOTE | 2019-12-03 13:30 | W.HOLTRPT ---
Date of service: 12/03/19 Time of Service: 13:30 Holter Monitor Report Holter Monitor Note: This is a 2-day Holter monitor ordered for the indication of rapid atrial fibrillation. ?The patient was in atrial fibrillation for the entirety of the recording. The maximal heart rate while in atrial fibrillation was 116 bpm. ?There were no other types of supraventricular tachycardia detected. ?There were no episodes of ventricular tachycardia and rare single ventricular ectopic beats. ?There were no pauses greater than 3 seconds and no evidence of high degree heart block. ?There were no patient triggered events.
== END 2019-12-02 17:17 ==
PROVIDERS: PCP Emergency Medicine; Visit Provider Emergency Medicine
DX: I48.91 Unspecified atrial fibrillation (principal)
CPT/HCPCS: 93226

== ENCOUNTER 2019-12-04 10:20 | Outpatient (CLI) | payer OTHER, SELFPAY | END 2019-12-04 10:40 | PROVIDERS: PCP Emergency Medicine; Visit Provider Internal Medicine Cardiovascular Disease | DX: I48.91 Unspecified atrial fibrillation (principal) | CPT/HCPCS: 93005; 93010 ==

== ENCOUNTER 2019-12-10 02:13 | Outpatient (RCR) | payer OTHER, SELFPAY ==
[2019-11-30 12:55] VITALS: BP 125/75; PULSE 115; RESP 20; TEMP 37.4; O2SAT 96
[2019-11-30] MEDS: cefTRIAXone 2 GM/50 ML BAG IVPB (13:09)
[2019-11-30] MEDS: Normal Saline Flush 10 ML SYR IVP (13:10)
[2019-12-01 13:06] VITALS: BP 143/71; PULSE 96; RESP 16; TEMP 37; O2SAT 96
[2019-12-01] MEDS: cefTRIAXone 2 GM/50 ML BAG IVPB (13:06)
[2019-12-01] MEDS: Normal Saline Flush 10 ML SYR IVP (13:06)
--- NOTE | 2019-12-01 13:17 | W.MEDCONSULT ---
Date of service: 12/01/19 Time of Service: 13:17 Assessment and Plan Assessment and plan (1) Right heart failure: Status: Acute Assessment and plan: He shows evidence of worsening right heart failure. This is probably secondary to him being on the calcium channel lakhwinder to control his heart rate. His echocardiogram on 11/27/2019 did show a mildly dilated right ventricle with global systolic function low normal. His heart rate is 96 and only marginally controlled on the Cardizem 300 mg daily. One consideration would be to transition him off of the calcium channel lakhwinder in favor of a beta-lakhwinder. For now will institute daily furosemide therapy, leg elevation, TIN compression stockings. He has follow-up planned with his PCP within the next week. (2) Bacteremia: Status: Acute Assessment and plan: Continues to receive daily IV ceftriaxone for Haemophilus influenza bacteremia. (3) Rapid atrial fibrillation: Status: Resolved Assessment and plan: Heart rate marginally controlled. Low Tom vasc score. On aspirin prophylaxis. History of Present Illness History of Present Illness Chief Complaint: Worsening leg edema/8 pound weight gain Narrative: 59-year-old male here for daily ceftriaxone infusion. He had called earlier in the day because of worsening leg edema and an 8 pound weight gain in the last 2 days. He otherwise feels well. No new respiratory symptoms. He does not feel palpitations or any chest discomfort. He also notes some increase in abdominal girth. He was discharged with 1 day of furosemide to take. He has been taking his other medications as directed. [facility] Medical History Asthma (Chronic) Erosive gastritis (Chronic 03/03/17) Essential hypertension (Chronic) Hyperlipidemia (Chronic) Peptic ulcer of duodenum (Chronic 03/03/17) Surgical History Colonoscopy - MAC (Inactive 10/11/17) EGD - MAC (Inactive 10/11/17) HERNIA REPAIR (Inactive ~2010) Family History Other Adopted Social History Smoking/Tobacco Use Status: Never Alcohol Intake: current Alcohol Intake frequency: holidays/special occasions only Drug use: Never Substance use type: does not use Do you feel safe in your relationship?: Yes Exam Narrative Exam Narrative: Temp is 37.0 blood pressure 143/71 respiratory rate 16 pulse 96 and irregular sat is 96% on room air. He he is in no distress, pleasant and interactive. His lung exam is clear on the right and left. His heart is irregularly irregular. No murmur. Abdomen moderately distended but soft. He has 3-4+ edema bilaterally in the lower extremities. Otherwise well perfused. Results Last Vital Signs Temp 37 C 12/01/19 13:06 Pulse 96 H 12/01/19 13:06 Resp 16 12/01/19 13:06 BP 143/71 H 12/01/19 13:06 Pulse Ox 96 12/01/19 13:06
[2019-12-02] MEDS: cefTRIAXone 2 GM/50 ML BAG IVPB (12:57)
[2019-12-02] MEDS: Normal Saline Flush 10 ML SYR IVP (12:58)
[2019-12-02 13:14] VITALS: BP 143/71; PULSE 96; RESP 16; TEMP 37; O2SAT 96
[2019-12-03 12:57] VITALS: BP 138/72; PULSE 82; RESP 17; O2SAT 99
[2019-12-03] MEDS: Normal Saline Flush 10 ML SYR IVP (13:02)
[2019-12-03] MEDS: cefTRIAXone 2 GM/50 ML BAG IVPB (13:02)
[2019-12-04] MEDS: cefTRIAXone 2 GM/50 ML BAG IVPB (11:23)
[2019-12-04] MEDS: Normal Saline Flush 10 ML SYR IVP (11:23)
[2019-12-05] MEDS: cefTRIAXone 2 GM/50 ML BAG IVPB (13:01)
[2019-12-05] MEDS: Normal Saline Flush 10 ML SYR IVP (13:01)
[2019-12-06] MEDS: cefTRIAXone 2 GM/50 ML BAG IVPB (13:07)
[2019-12-06] MEDS: Normal Saline Flush 10 ML SYR IVP (13:07)
[2019-12-07] MEDS: cefTRIAXone 2 GM/50 ML BAG IVPB (13:14)
[2019-12-08] MEDS: Normal Saline Flush 10 ML SYR IVP (13:00)
[2019-12-08] MEDS: cefTRIAXone 2 GM/50 ML BAG IVPB (13:00)
[2019-12-09] MEDS: cefTRIAXone 2 GM/50 ML BAG IVPB (12:58)
[2019-12-09] MEDS: Normal Saline Flush 10 ML SYR IVP (12:59)
[2019-12-10] MEDS: cefTRIAXone 2 GM/50 ML BAG IVPB (14:13)
[2019-12-10] MEDS: Normal Saline Flush 10 ML SYR IVP (14:13)
[2019-12-10] MEDS: Bacitracin 1 PACKET (14:50)
== END 2019-12-21 23:59 | disposition home or self-care (01) ==
LOC: INF 02:13
PROVIDERS: PCP Emergency Medicine; Visit Provider Internal Medicine
DX: I50.811 Acute right heart failure (principal); R78.81 Bacteremia; B96.3 Hemophilus influenzae [H. influenzae] as the cause of diseases classified elsewhere; I48.91 Unspecified atrial fibrillation
CPT/HCPCS: 96365; 99242; 99252

== ENCOUNTER 2019-12-13 11:49 | Outpatient (CLI) | payer OTHER, SELFPAY ==
--- NOTE | 2019-12-13 10:45 | DI.RAD_ITS ---
EXAM: XR CHEST 2V PA LATERAL INDICATION: Community-acquired pneumonia, septic shock, J18.9, A41.9, R65.21. COMPARISON: XR CHEST 2V PA LATERAL from 11/25/2019 XR PORTABLE CHEST AP from 11/26/2019 XR PORTABLE CHEST AP from 11/27/2019 TECHNIQUE: 2D digital imaging was performed. FINDINGS: The heart size is normal. There has been interval clearing of the previously noted bilateral infiltr ates. No new abnormalities are seen. There are stable degenerative changes in the mid to lower thor acic spine. IMPRESSION: Resolution of previously noted bilateral pneumonia. No new abnormalities are seen. DATA REPOSITORY: RADIATION DOSE DELIVERED:
[2019-12-13 11:04] LABS: Abs Immature Grans 0.01 k/cumm (0.0-0.09); Absolute Basophil Count 0.04 k/cumm (0.0-0.2); Absolute Lymphocyte Count 1.16 k/cumm (1.2-3.4); Absolute Monocyte Count 0.83 k/cumm (0.11-0.7); Basophils % 0.7; Eosinophils % 1.7; HCT 41.3 % (40.0-50.0); HGB 13.4 g/dL (13.5-17.5); Immature Grans % 0.2 %; Lymphocytes % 19.9; Mean Corp. HGB Concentration 32.4 g/dL (32.0-36.0); Mean Corpuscular Hemoglobin 29.5 pg (27.0-33.0); Mean Platelet Volume 8.7 fL (8.0-11.0); Monocytes % 14.2; Neutrophils % 63.3; Platelet Count 263 x1000/uL (130-400); RBC 4.54 m/cumm (4.50-6.00); RBC Distribution Width 13.5 % (11.8-14.1); White Blood Cell Count 5.84 k/cumm (4.4-10.8)
[2019-12-13 12:05] LABS: ALT 31 U/L (16-63); AST 36 U/L (15-37); Albumin 3.4 g/dL (3.4-5.0); Alkaline Phosphatase 98 U/L (46-116); Anion Gap 11.7 mmol/L (3-11); BUN 12 mg/dL (7-18); Bilirubin, Total 0.5 mg/dL (0.2-1.0); CO2 26.3 mmol/L (21.0-32.0); CREATININE 1.32 mg/dL (0.70-1.30); Calcium 8.2 mg/dL (8.5-10.1); Chloride 97 mmol/L (98-107); Estimated GFR 55.91 (mL/min/1.73m2); Glucose 78 mg/dL (74-106); Potassium 4.3 mmol/L (3.5-5.1); Sodium 135 mmol/L (136-145)
== END 2019-12-13 12:09 ==
PROVIDERS: Nurse Practitioner; PCP Emergency Medicine; Visit Provider Emergency Medicine
DX: A41.9 Sepsis, unspecified organism (principal); J18.9 Pneumonia, unspecified organism; R65.21 Severe sepsis with septic shock
CPT/HCPCS: 36415; 80053; 71046; 85025

== ENCOUNTER 2021-08-02 10:51 | Outpatient (CLI) | payer OTHER, SELFPAY ==
--- NOTE | 2021-08-02 10:00 | DI.RAD_ITS ---
Exam(s) XR FOOT RT COMPLETE EXAM: XR FOOT RT COMPLETE CLINICAL HISTORY: evaluate right hallux valgus TECHNIQUE: COMPARISON: No exams were available for comparison FINDINGS: Three views were obtained. There is mild to moderate hallux valgus deformity. Minimal subchondral s clerosis of the head of the 1st metatarsal is noted. There are mild marginal osteophytes and there a re subchondral cysts of the 1st metatarsal head as well. Minimal subchondral sclerosis and marginal osteophytes of base of the proximal phalanx of the thumb are present. No other significantfindings are present. IMPRESSION: Mild to moderate hallux valgus deformity, mild secondary degenerative changes at the 1st MTP joint RADIATION DOSE DELIVERED: Total DLP
== END 2021-08-02 10:52 | disposition home or self-care (01) ==
LOC: DIORS 10:51
PROVIDERS: PCP Emergency Medicine; Referring Provider Emergency Medicine; Visit Provider Student in an Organized Health Care Education/Training Program
DX: M20.11 Hallux valgus (acquired), right foot (principal); M19.071 Primary osteoarthritis, right ankle and foot
CPT/HCPCS: 73630

== ENCOUNTER 2021-10-26 03:11 | Outpatient (CLI) | payer OTHER, SELFPAY ==
[2021-10-26 11:52] LABS: Anion Gap 8.5 mmol/L (3-11); BUN 19 mg/dL (7-18); CO2 31.5 mmol/L (21.0-32.0); CREATININE 1.1 mg/dL (0.70-1.30); Chloride 104 mmol/L (98-107); Glucose 82 mg/dL (74-106); Potassium 4.3 mmol/L (3.5-5.1); Sodium 144 mmol/L (136-145)
[2021-10-26 11:53] LABS: Folate > 20.0 ng/mL (8.6-20.0)
[2021-10-26 19:16] LABS: PSA, Screening 0.8 ng/mL (0.0-3.5)
== END 2021-10-26 03:12 | disposition home or self-care (01) ==
LOC: LBO 03:11
PROVIDERS: PCP Emergency Medicine; Visit Provider Emergency Medicine
DX: J45.901 Unspecified asthma with (acute) exacerbation (principal); N17.9 Acute kidney failure, unspecified; R78.81 Bacteremia; I10 Essential (primary) hypertension; Z12.5 Encounter for screening for malignant neoplasm of prostate; I48.91 Unspecified atrial fibrillation
CPT/HCPCS: 36415; 80048; 84153; 82746

== ENCOUNTER 2021-10-29 01:51 | Outpatient (RCR) | payer OTHER, SELFPAY ==
--- NOTE | 2021-10-29 14:30 | HOLTER_ITS ---
APPROVED REPORT Conclusion This is a 48-hour Holter monitor ordered for atrial fibrillation Predominant rhythm was sinus with an average heart rate of 75. Minimum was 57, maximum 124 There were very rare isolated ventricular ectopic beats There were very rare atrial premature beats. There were 2 self-limited atrial runs, the longest of w hich was 7 beats in duration There was no atrial fibrillation, no high-grade AV block, no pauses greater than 3 seconds Patient's symptoms were reported
== END 2021-11-22 23:59 | disposition home or self-care (01) ==
LOC: RT 01:51
PROVIDERS: PCP Emergency Medicine; Visit Provider Emergency Medicine
DX: I48.91 Unspecified atrial fibrillation (principal); I49.1 Atrial premature depolarization
CPT/HCPCS: 93225; 93226

== ENCOUNTER 2023-03-03 00:33 | Outpatient (CLI) | payer OTHER, SELFPAY ==
[2023-03-03 10:39] LABS: CREATININE 1.1 mg/dL (0.70-1.30); Estimated GFR 76.85 (mL/min/1.73m2)
[2023-03-03] MEDS: Omnipaque 350 MG/ML 500 ML BTL-Imaging package 100 ML IJ (10:55)
--- NOTE | 2023-03-03 11:05 | DI.CT_ITS ---
Exam(s) CT NECK W EXAM: CT NECK W CLINICAL HISTORY: dysphagia,R13.10. TECHNIQUE: Imaging Protocol: Axial computed tomography images with coronal and sagittal reformatted images were created and reviewed CONTRAST MATERIAL: Intravenous: Omnipaque 350 Contrast volume:100 ml contrast COMPARISON: CT CT chest w from 12/05/2018 CR XR CHEST 2V PA LATERAL from 12/13/2019 FINDINGS: Parotids/submandibular:Unremarkable. Thyroid gland: Resection of the left lobe. Right lobe and isthmus are unremarkable. Lymphadenopathy: There are scattered lymph nodes seen along the level one to level three all measuri ng less than 8 mm in short axis diameter which are physiologic in nature. Carotids: Mild plaque at the common carotid bulbs, right greater than left. No significant stenosis or dissection.. Soft tissues: The floor the mouth is partially obscured by artifact from dental work but grossly un remarkable. The epiglottis and vocal cords are within normal limits. Lungs: Mild apical scarring. Bones: Degenerative changes of the cervical spine. Visualized portions of the brain and orbits: Unremarkable. Sinuses and mastoids: Mucous retention in right maxillary sinus. IMPRESSION: Status post resection of left lobe the thyroid. No evidence of suspicious mass or adenopathy. Mucous retention in right maxillary sinus. RADIATION DOSE DELIVERED: 402.4mGy.cm Total DLP DATA REPOSITORY: All CT scans at this facility are submitted to the National Radiology Data Registry (NRDR) Dose Index Registry (DIR) with the [employer] (ACR). RADIATION OPTIMIZATION: All CT scans at this facility use at least one of these dose optimization te chniques: automated exposure control; mA and/or kV adjustment per patient size (includes targeted exa ms where dose is matched to clinical indication); or iterative reconstruction.
== END 2023-03-03 00:53 ==
LOC: DI 00:33
PROVIDERS: PCP Nurse Practitioner Family; Visit Provider Emergency Medicine
DX: R13.10 Dysphagia, unspecified (principal)
CPT/HCPCS: 70491; 82565

== ENCOUNTER → 2023-06-05 03:01 | Outpatient (CLI) | payer OTHER, SELFPAY ==
--- NOTE | 2023-06-05 10:25 | DI.RAD_ITS ---
Exam(s) RF BARIUM SWALLOW EXAM: RF BARIUM SWALLOW CLINICAL HISTORY: solid dysphagia at CP level,r13.14 TECHNIQUE: 2D and realtime digital imaging was performed. CONTRAST MATERIAL: Oral barium Oral water soluble contrast was administered. COMPARISON: No exams were available for comparison FINDINGS: ESOPHAGRAM: Performed standing and [place] recumbent. Swallowing mechanism is grossly intact. There was no aspiration observed. There is a hypertense upp er esophageal sphincter noted at C5 level. There is no evidence of Zenker's diverticulum. Proximal and mid esophagus appear unremarkable. Normal motility. No tertiary waves. Distally there is no evidence of demonstrable Schatzki ring nor prominent hiatal hernia. A small sli ding-type hiatal hernia was able to be elicited but only after the patient drank quite a bit in diffe rent positions. A possible concern here is the esophagus at the level the GE junction which never ap pears to fully open, indicated that there may be subtle stricture at this level. IMPRESSION: Subtle findings in the distal esophagus just above the GE junction possibly indicating subtle strictu re at this level. Recommend endoscopy. RADIATION DOSE DELIVERED: qasim Howe=36.4 mGy
[2023-06-05] MEDS: Simethicone/Sod Bicarb/Cit Ac, 4 gram PACKET 1 PACKET PO (10:39)
[2023-06-05] MEDS: Barium Sulfate 98% W/W 140 ML BTL 100 ML PO (10:41)
[2023-06-05] MEDS: Barium Sulfate 60% W/V 355 ML BTL 300 ML PO (10:42)
== END ==
PROVIDERS: PCP Nurse Practitioner Family; Visit Provider Otolaryngology
DX: R13.14 Dysphagia, pharyngoesophageal phase (principal); R93.3 Abnormal findings on diagnostic imaging of other parts of digestive tract
CPT/HCPCS: 74221; J3490

== ENCOUNTER 2023-06-28 12:10 | Day surgery (SDC) | payer OTHER, SELFPAY ==
[2023-06-28 09:53] VITALS: BMI 29.5
--- NOTE | 2023-06-28 09:53 | ANES.PREOP_ITS ---
General Info Date of Service Date Performed: 06/28/23 Height: 5 ft 4 in Weight: 78.131 kg Body Mass Index (BMI): 29.5 Surgical Procedure: Operation Date: 06/28/23 13:35 Proposed Procedure Side Surgeon p Gastroscopy Blessing Olsen MD Meds Allergies and Home Medications Allergies Allergy/AdvReac Type Severity Reaction Status Date / Time methotrexate AdvReac Severe weight loss Verified 06/28/23 12:29 DOG DANDER Allergy Mild Uncoded 06/28/23 12:29 DUST Allergy Mild Uncoded 06/28/23 12:29 POLLEN EXTRACTS Allergy Mild Uncoded 06/28/23 12:29 [place] Allergy Unknown Uncoded 06/28/23 12:29 Home Medication Medication Instructions Recorded cyanocobalamin (vitamin B-12) 500 1,000 mcg PO DAILY #60 tabs 11/29/19 mcg tablet (Vitamin B-12) levalbuterol HCl 1.25 mg/3 mL 1.25 mg (3 mL) UPD Q4H PRN PRN 11/29/19 solution for nebulization shortness of breath or wheezing #90 mL dupilumab 200 mg/1.14 mL 200 mg subcut Q4W 08/02/21 subcutaneous pen injector albuterol sulfate 90 mcg/actuation 2 puff inhalation Q4H PRN ##3 07/18/22 aerosol inhaler (ProAir HFA) lorazepam 1 mg tablet (Ativan) 1 mg PO HS PRN sleep #90 tab-caps 07/18/22 diltiazem HCl 180 mg 180 mg PO DAILY #90 caps 08/22/22 capsule,extended release 24 hr (Cardizem CD) sildenafil 100 mg tablet (Viagra) 100 mg PO DAILY PRN sexual 02/13/23 activity #7 tabs tiotropium bromide 2.5 2 puff inhalation QAM #4 grams 03/06/23 mcg/actuation mist for inhalation (Spiriva Respimat) fluticasone 500 mcg-salmeterol 50 1 inh inhalation BID #2 ea 06/01/23 mcg/dose blistr powdr for inhalation (Advair Diskus) Current Visit Medications: Current Medications Generic Name Dose Route Start Last Admin Trade Name Freq PRN Reason Stop Dose Admin Ringer's Solution 1,000 mls @ 80 mls/hr 06/28/23 06:00 IV 07/27/23 23:59 INFUSION [facility] IV Miscellaneous Supplies 1 each 06/28/23 06:00 Iv Access IV 07/27/23 23:59 DIRECTED MEDARDO Sodium Chloride 0 ml 06/28/23 06:00 Normal Saline Flush 10 Ml Syr IV 07/27/23 23:59 PRN PRN Sodium Chloride 0 ml 06/28/23 06:00 Normal Saline 10 Ml Vial IJ 07/27/23 23:59 DIRECTED PRN Sterile Water 0 ml 06/28/23 06:00 Water,Injection,Sterile 10 Ml Vial IJ 07/27/23 23:59 DIRECTED PRN PFSH Active Problems Active Problems: Problem Status Onset Code Esophageal stenosis K22.2 Sensorineural hearing loss, bilateral H90.3 Pharyngoesophageal dysphagia R13.14 Erectile disorder N52.9 Dysphagia R13.10 Hallux valgus of right foot M20.11 Decreased appetite R63.0 Nausea & vomiting R11.2 Thrush, oral B37.0 Afib I48.91 Right heart failure I50.810 Bacteremia R78.81 Discharge planning issues Z02.9 DVT prophylaxis Z29.9 Lactic acidosis E87.2 TAMAR (acute kidney injury) N17.9 Elevated troponin R79.89 H/O: hypertension Z86.79 Rapid atrial fibrillation I48.91 Asthma with acute exacerbation J45.901 CAP (community acquired pneumonia) J18.9 Septic shock A41.9, R65.21 Pleural effusion, right J90 Umbilical hernia K42.9 Sexual function problem F52.9 Peptic ulcer of duodenum 03/03/17 K26.3 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 Hyperlipidemia E78.5 Hearing loss H91.90 Essential hypertension I10 Erosive gastritis 03/03/17 K29.60 Colitis 10/11/17 K52.9 Asthma J45.909 Amblyopia H53.009 Surgical History Surgical History Colonoscopy - MAC (10/11/17) EGD - MAC (10/11/17) HERNIA REPAIR (~2010) Tobacco Smoking/Tobacco Use Status: Never Alcohol Alcohol Intake: current Alcohol intake frequency: holidays/special occasions only Substance Use Substance use: Never Substance use type: does not use Vital Signs and Lab Results Vital Signs Most Recent Vital Signs in EMR: Temp Pulse Resp BP Pulse Ox 36.5 C 68 16 127/77 96 06/28/23 12:25 06/28/23 12:25 06/28/23 12:25 06/28/23 12:25 06/28/23 12:25 Lab Results Blood Type / Crossmatch: No Data to Display Complete Blood Count: No Data to Display Complete Metabolic Panel: No Data to Display Liver Function Panel: No Data to Display Coagulation Panel: No Data to Display Cardiac Panel: No Data to Display Arterial Blood Gas: No Data to Display Venous Blood Gas: No Data to Display Pancreas Panel: No Data to Display Thyroid Panel: No Data to Display Infectious Disease: No Data to Display Blood Cultures: No Data to Display Toxicology Panel: No Data to Display Imaging and Studies Imaging and Studies Study information below may be from another EMR and interpreted by another provider. Please see original notes in EMR for more complete details. Echocardiogram Summary: 11/27/2019: Mild AR, Moderate MR, EF 55%. Anesthesia Assessment and Plan Anesthesia History Personal History: No History of Anesthesia Complications Family History: Family History Unknown Exercise Tolerance Exercise Tolerance: Metabolic Equivalents>4 Pertinent Negatives Pertinent Negatives: No Symptoms of GERD and No Major Pulmonary Symptoms or Complaints Cardiac & Pulmonary Exam Cardiac Exam: Normal S1/S2 Heart Sounds Pulmonary Exam: Clear Bilateral Breath Sounds Implantable Cardiac Device Does patient have a Pacemaker or an ICD?: No Airway Exam Known Difficult Airway: No Mallampati Class: 2 Mouth Opening: Normal (> 3cm) Thyromental Distance: Greater than 3 cm Neck Range of Motion: Full ROM Neck Circumference: Normal Teeth Condition: Normal Dentition ASA Classification ASA Score: ASA 2 Emergency Case?: No NPO Status NPO Status: NPO Clears >2 hours, Solids >8 hours Anesthesia Plan Resuscitation Status: Full Code Anesthesia Technique: General Anesthesia Airway Planned: Natural Airway Monitors Used: Standard Monitors
--- NOTE | 2023-06-28 10:59 | PGE_ITS ---
Date of Service Date of service: 06/28/23 Time of Service: 12:49 Assessment and Plan Assessment and plan (1) Pharyngoesophageal dysphagia: Status: Acute Assessment and plan: Jasson is a pleasant 63-year-old gentleman who comes in today because of dysphagia which has been going on for over a year.? The dysphagia is to solids only.? He did have a barium swallow which was positive for possible stricture in the distal esophagus.? They did not see a Zenker's diverticulum.? We reviewed the pathophysiology of having a Schatzki's ring or scarring.? We reviewed the differential diagnosis of a mass versus scarring versus severe esophagitis which could all cause his symptoms.? I reviewed the procedure with him as well as the Possible complications.? After discussing these with the patient he had a good understanding of the procedure and the complications and wished to proceed.? Risks, benefits and complications have been reviewed. Complications include but are not limited to bleeding, pain, perforation, sore throat, aspiration, and adverse reaction to the medications.? Questions were entertained and answered to their satisfaction and they wished to proceed. No guarantees were given or implied.? Due to his severe asthma I did discuss with him that if he has an aspiration event he may end up needing to stay the night and be treated with prednisone and antibiotics. (2) Esophageal stenosis: Status: Acute Subjective Subjective Interval history since last seen: I saw Jasson in [facility] today. He continues to have difficulty with eating. Food seems to get stuck, he gets hiccups and the eventually the food goes down into his stomach. He has had no new symptoms. He has no questions regarding the procedure Exam Const General: cooperative, comfortable and no acute distress Nutritional Appearance: average body habitus Orientation: alert and oriented to person [facility] Head: normocephalic and atraumatic Resp Effort & Inspection: normal respiratory effort Time Spent with Patient Time Spent with Patient: <25 minutes Time was spent: counseling the patient
--- NOTE | 2023-06-28 11:00 | ENDO_ITS ---
Date of service: 06/28/23 Time of Service: 13:39 Endoscopy Report DATE OF PROCEDURE: 06/28/23 PRE-OP DIAGNOSIS: Dysphagia PROCEDURE: EGD with biopsies SURGEON: Blessing Olsen ANESTHESIA TYPE: General:No Airway ESTIMATED BLOOD LOSS: 5 COMPLICATIONS: None DISPOSITION: same day INDICATIONS: Jasson is a pleasant 63-year-old gentleman who comes in today because of dysphagia which has been going on for over a year.? The dysphagia is to solids only.? He did have a barium swallow which was positive for possible stricture in the distal esophagus.? They did not see a Zenker's diverticulum.? We reviewed the pathophysiology of having a Schatzki's ring or scarring.? We reviewed the differential diagnosis of a mass versus scarring versus severe esophagitis which could all cause his symptoms.? I reviewed the procedure with him as well as the Possible complications.? After discussing these with the patient he had a good understanding of the procedure and the complications and wished to proceed.? Risks, benefits and complications have been reviewed. Complications include but are not limited to bleeding, pain, perforation, sore throat, aspiration, and adverse reaction to the medications.? Questions were entertained and answered to their satisfaction and they wished to proceed. No guarantees were given or implied.? Due to his severe asthma I did discuss with him that if he has an aspiration event he may end up needing to stay the night and be treated with prednisone and antibiotics. FINDINGS: severe inflammation in the esophagus Hiatal hernia Schatzki's ring PROCEDURE DESCRIPTION: After informed consent was obtained the patient was take to the procedure room and placed in a supine position. Monitors were applied and a time out was done. The patients name, date of , procedure type, allergies to medications and metal in their body was reviewed. A bite block was placed and the patient was sedated. Once sedated and comfortable the gastroscope was advanced through the oropharynx which was grossly normal into the esophagus. The proximal and mid- esophagus were normal. In the distal esophagus there was severe inflammation noted. There was also a Schatzki's ring noted. The scope was advanced into the stomach and through the pylorus into the 3rd portion of the duodenum. The duodenum was noted to be normal. Biopsies were done to rule out Celiac sprue. The scope was retracted back into the stomach and biopsies were done to rule out H. pylori. There were no ulcers. The scope was retroflexed. The cardia and fundus were noted to be normal. There was a small hiatal hernia noted. The scope was retracted back into the esophagus and biopsies were done of the GE junction to rule out Bucio's. Multiple biopsies were done of the schatzki's ring to soften the scar tissue and hopefully help with his dysphagia. The Z line was regular. The GE junction was at 34 cm. The scope was removed and the patient was woken up and taken back to [facility] in stable condition. Follow up: 3 weeks
--- NOTE | 2023-06-28 11:01 | PDOC.DSDIS_ITS ---
Date of service: 06/28/23 Time of Service: 13:27 Discharge Plan Disposition Patient Disposition: Home Condition: Stable Discharge Details Reason For Visit: dysphagia Attending Provider: Blessing Olsen Primary Care Provider: Keshawn Horan Home Meds and New Rx's Prescriptions: New omeprazole 40 mg capsule,delayed release(DR/EC) 40 mg PO BID Qty: 60 0RF Continued dupilumab 200 mg/1.14 mL pen injector 200 mg subcut Q4W albuterol sulfate [ProAir HFA] 90 mcg/actuation HFA aerosol inhaler 2 puff Inhalation Q4H PRN Qty: 3 12RF lorazepam [Ativan] 1 mg tablet 1 mg PO HS PRN (Reason: sleep) Qty: 90 1RF sildenafil [Viagra] 100 mg tablet 100 mg PO DAILY PRN (Reason: sexual activity) Qty: 7 3RF Rx Instructions: administer 30 minutes to 4 hours before activity diltiazem HCl [Cardizem CD] 180 mg capsule,extended release 24hr 180 mg PO DAILY Qty: 90 3RF Spiriva Respimat 2.5 mcg/actuation mist 2 puff inhalation QAM Qty: 4 8RF fluticasone propion-salmeterol [Advair Diskus] 500-50 mcg/dose blister with device 1 inh Inhalation BID Qty: 2 12RF cyanocobalamin (vitamin B-12) [Vitamin B-12] 500 mcg Tablet 1,000 mcg PO DAILY Qty: 60 0RF levalbuterol HCl 1.25 mg/3 mL Solution For Nebulization 1.25 mg UPD Q4H PRN PRN (Reason: shortness of breath or wheezing) Qty: 90 3RF Discharge Instructions Instructions: Hiatal Hernia (DC), Diet for Stomach Ulcers and Gastritis (ED), GERD (Gastroesophageal Reflux Disease) (DC), Esophagitis (DC) Additional Instructions: Findings: 1. Hiatal hernia 2. inflammation of the esopagus at the junction with the stomach with scarring secondary to acid reflux Medications: Please corn picker and start Omeprazole 40 mg 2 x a day Diet: Low acid Follow up: 2 weeks Please call if you develop: fevers >101.5 Nausea or Vomiting Abdominal pain that is not transient Rectal bleeding that is more then a tbsp A hard abdomen and inability to pass gas DAY SURGERY UNIT POST ENDOSCOPY INSTRUCTIONS Instructions for everyone who is given Anesthesia: For your safety, please do the following for the next 24 Hours: a. Do not drive or operate dangerous equipment b. Do not drink alcohol beverages or use any recreational drugs for the first 24 hours or while taking pain medications. The medications in your body may have a reaction that can be dangerous. c. Do not make any important decisions or sign any important papers 1. Generally there are no restrictions on your activity after a day or so has gone by, but you may feel a bit fatigued for a few days. 2. After you arrive home you may have a light meal and return to a normal diet as you can tolerate it without feeling sick to your stomach. 3. After surgery, you may feel pain or discomfort. This should be only transient, but if it persists please contact your doctor. 4. If there are any questions regarding the findings of your procedure, please feel free to contact your doctor. 6. If you are unable to contact your doctor with a problem, contact the hospital at [phone]. 7. Continue all your regular medications unless directed otherwise. I understand the above instructions and have no questions. Signature of Patient or Responsible Adult Escort Date/Time Name of Responsible Adult Escort Signature of Nurse Date/Time Stand Alone Forms: Anesthesia Discharge Inst., Chandni Epstein (DSU) Referrals: Blessing Olsen MD [ [facility] STAFF PHYSICIAN] - 07/21/23 9:30 am Activity:: Activity as Tolerated Diet:: as above Discharge Orders Discharge Orders: Discharge Order (Routine); Ordered 06/28/23 Ordered By: Blessing Olsen DS: Diagnosis Discharge Diagnosis (1) Pharyngoesophageal dysphagia: Status: Acute Asessment and Plan: Patient is seen and examined after their endoscopy. Patient has minimal sore throat. They have been able to tolerate liquids. They do not have any Nausea or Vomiting. They are not having any chest pain or shortness of breath. They have been able to pass gas and are not having any abdominal pain or distention. they have not vomited any blood. The vital signs have been stable-see nursing notes. We discussed findings on their endoscopy We reviewed the importance of lifestyle modifications- see diet recommendations We reviewed any new medications that the patient may be prescribed- see medicine reconciliation. Patient will either be sent a letter with the biopsy results or follow up in the office- see discharge instructions Patient was given explicit instructions for emergency follow up post endoscopy- see discharge instructions Patient verbalized understanding and was discharged in stable and satisfactory condition. See nursing notes. (2) Esophageal stenosis: Status: Acute
[2023-06-28 12:25] VITALS: BP 127/77; PULSE 68; RESP 16; TEMP 36.5; O2SAT 96
[2023-06-28] MEDS: Lactated Ringers 1,000 ML 80 ML IV (12:40)
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
[2023-06-28 13:10] VITALS: BP 117/58; PULSE 77; RESP 16; TEMP 36.2; O2SAT 96
--- NOTE | 2023-06-28 13:25 | W.ANESPOSTOP ---
Postoperative Evaluation Date, Time and Location Date Performed: 06/28/23 Time Performed: 13:25 Patient Location: Day Surgery Unit Vital Signs Most Recent Imported Vital Signs: Most Recent Vital Signs Temp Pulse Resp BP Pulse Ox 36.2 C L 77 16 117/58 L 96 06/28/23 13:10 06/28/23 13:10 06/28/23 13:10 06/28/23 13:10 06/28/23 13:10 Pain Score Most Recent Pain Score: Most Recent Pain Score Pain Level 0 06/28/23 13:10 Assessment Mental Status: Awake (Alert & Oriented to Patient Baseline) Airway and Respiratory Function: Patent airway with normal (patient baseline) respiratory exam Cardiovascular Function: Hemodynamically Stable Hydration Status: Adequately Hydrated Nausea & Vomiting: No Nausea or Vomiting Pain: Pt. Denies Any Pain Peripheral Nerve Block: Patient did not receive a nerve block
[2023-06-28 13:37] VITALS: BP 106/88; PULSE 60; RESP 16; TEMP 36.3; O2SAT 97
== END 2023-06-28 12:11 | disposition home or self-care (01) ==
PROVIDERS: PCP Nurse Practitioner Family; Visit Provider Surgery
PROC: 0DJ68ZZ Inspection of Stomach, Via Natural or Artificial Opening Endoscopic (ICD-10-PCS; CPT 43235; principal; 2023-06-28 13:30)
DX: K22.2 Esophageal obstruction; K20.90 Esophagitis, unspecified without bleeding; K44.9 Diaphragmatic hernia without obstruction or gangrene; K29.70 Gastritis, unspecified, without bleeding
CPT/HCPCS: 43239; 88305

== ENCOUNTER 2023-08-25 02:37 | Outpatient (CLI) | payer OTHER, SELFPAY ==
[2023-08-25 11:53] LABS: Calculated LDL 97 mg/dL (<100); Cholesterol 169 mg/dL (<200); HDL Cholesterol 62 mg/dL (40-60); Triglyceride 53 mg/dL (<150)
== END 2023-08-25 02:38 | disposition home or self-care (01) ==
PROVIDERS: PCP Nurse Practitioner Family; Visit Provider Nurse Practitioner Family
DX: Z13.220 Encounter for screening for lipoid disorders (principal)
CPT/HCPCS: 36415; 80061

== ENCOUNTER 2024-05-08 07:25 | Emergency (ER) | payer OTHER, SELFPAY ==
[2024-05-08 07:27] VITALS: BP 138/78; PULSE 79; RESP 16; TEMP 36.4; O2SAT 98
[2024-05-08 07:30] VITALS: BP 138/78; PULSE 79; RESP 16; TEMP 36.4; O2SAT 98
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
[2024-05-08] MEDS: Lactated Ringers 1,000 ML 1000 ML IV (08:07)
[2024-05-08 08:08] LABS: Abs Immature Grans 0.03 10^3/uL (0.0-0.06); Absolute Basophil Count 0.05 10^3/uL (0.0-0.2); Absolute Eosinophil Count 0.42 10^3/uL (0.0-0.7); Absolute Lymphocyte Count 2.09 10^3/uL (1.2-3.4); Absolute Neutrophil Count 6.76 10^3/uL (1.2-6.7); Basophils % 0.5 %; Eosinophils % 4.1 %; HCT 42.8 % (40.0-50.0); HGB 14.6 g/dL (13.5-17.5); Immature Grans % 0.3 %; Lymphocytes % 20.6 %; MCH 30.8 pg (27.0-33.0); MCHC 34.1 % (32.0-36.0); MCV 90 fL (80-95); MPV 9.2 fL (8.0-11.0); Monocytes % 7.9 %; Neutrophils % 66.6 %; Platelet Count 241 10^3/uL (130-400); RBC 4.74 10^6/uL (4.36-5.78); RDW 12.6 % (11.8-14.1); RDW-SD 41.7 fL; WBC 10.15 10^3/uL (4.4-10.8)
[2024-05-08 08:24] LABS: ALT 19 U/L (16-63); AST 15 U/L (15-37); Albumin 3.6 g/dL (3.4-5.0); Alkaline Phosphatase 91 U/L (46-116); Anion Gap 7.1 mmol/L (3-11); BUN 15 mg/dL (7-18); Bilirubin, Total 0.58 mg/dL (0.2-1.0); CO2 27.9 mmol/L (21.0-32.0); CREATININE 1.1 mg/dL (0.70-1.30); Calcium 8.7 mg/dL (8.5-10.1); Chloride 103 mmol/L (98-107); Glucose 103 mg/dL (74-106); Magnesium 1.8 mg/dL (1.8-2.4); Potassium 3.5 mmol/L (3.5-5.1); Sodium 138 mmol/L (136-145); Total Protein 7.1 g/dL (6.4-8.2)
[2024-05-08 08:49] VITALS: PULSE 79; RESP 16; TEMP 36.4; O2SAT 97
[2024-05-08] MEDS: Loperamide 2 MG CAP 4 MG PO (08:52)
[2024-05-09 11:53] LABS: Campylobacter PCR Negative (Negative); Salmonella PCR Negative (Negative); Shigella/Enteroinvasive Ecoli Negative (Negative)
[2024-05-09 13:44] LABS: Shiga Toxin PCR Positive (Negative)
== END 2024-05-08 09:04 | disposition home or self-care (01) ==
PROVIDERS: Emergency Provider Physician Assistant; PCP Nurse Practitioner Family
DX: R11.0 Nausea (principal); R19.7 Diarrhea, unspecified; R10.9 Unspecified abdominal pain; X38.XXXA Flood, initial encounter
CPT/HCPCS: 36415; 80053; 87329; 87505; 96360; 99284; 83630; 83735; 84484; 85025; 99283

== ENCOUNTER 2024-09-13 15:13 | Outpatient (CLI) | payer OTHER, SELFPAY ==
--- NOTE | 2024-09-13 15:02 | DI.RAD_ITS ---
Exam(s) XR CHEST 2V PA LATERAL EXAM: XR CHEST 2V PA LATERAL CLINICAL HISTORY: J20.9 Acute Bronchitis, 2 weeks of cough. TECHNIQUE: 2D digital imaging was performed. COMPARISON: CR XR CHEST 2V PA LATERAL from 12/13/2019 FINDINGS: 2 views: Heart size is normal. The mediastinum is not widened. There is subtle infiltrate in the right lower lobe. Minimally increased markings in left lower. No pleural effusions. No pulmonary edema. IMPRESSION: Right lower lobe infiltrate. No pleural effusions. DATA REPOSITORY: RADIATION DOSE DELIVERED:
== END 2024-09-13 15:33 ==
PROVIDERS: PCP Nurse Practitioner Adult Health; Visit Provider Family Medicine
DX: J20.9 Acute bronchitis, unspecified (principal)
CPT/HCPCS: 71046

== ENCOUNTER 2024-10-14 02:31 | Outpatient (CLI) | payer OTHER, SELFPAY ==
[2024-10-14 08:37] LABS: Anion Gap 6.5 mmol/L (3-11); BUN 20 mg/dL (7-18); CO2 29.5 mmol/L (21.0-32.0); CREATININE 1.3 mg/dL (0.70-1.30); Calcium 8.9 mg/dL (8.5-10.1); Calculated LDL 88 mg/dL (<100); Chloride 106 mmol/L (98-107); Cholesterol 172 mg/dL (<200); Estimated GFR 62.11 (mL/min/1.73m2); Glucose 101 mg/dL (74-106); HDL Cholesterol 68 mg/dL (40-60); Potassium 4.2 mmol/L (3.5-5.1); Sodium 142 mmol/L (136-145); Triglyceride 83 mg/dL (<150)
== END 2024-10-14 02:32 | disposition home or self-care (01) ==
LOC: LBO 02:31
PROVIDERS: PCP Nurse Practitioner Adult Health; Referring Provider Nurse Practitioner Adult Health; Visit Provider Nurse Practitioner Adult Health
DX: I10 Essential (primary) hypertension (principal); Z13.220 Encounter for screening for lipoid disorders
CPT/HCPCS: 36415; 80048; 80061

== ENCOUNTER 2025-06-30 07:25 | Outpatient (CLI) | payer OTHER, SELFPAY ==
[2025-06-30 08:30] LABS: Hemoglobin A1C 5.5 % (<5.7)
[2025-06-30 09:02] LABS: Anion Gap 7.3 mmol/L (3-11); BUN 16 mg/dL (7-18); CO2 31.7 mmol/L (21.0-32.0); Calcium 9.6 mg/dL (8.5-10.1); Chloride 103 mmol/L (98-107); Estimated GFR 67.95 (mL/min/1.73m2); Glucose 98 mg/dL (74-106); Potassium 4.1 mmol/L (3.5-5.1); Sodium 142 mmol/L (136-145)
[2025-06-30 17:40] LABS: PSA, Screening 0.7 ng/mL (<=4.5)
== END 2025-06-30 07:26 | disposition home or self-care (01) ==
LOC: LBO 07-01 07:25
PROVIDERS: PCP Nurse Practitioner Adult Health; Visit Provider Nurse Practitioner Adult Health
DX: I10 Essential (primary) hypertension (principal); R73.03 Prediabetes; Z12.5 Encounter for screening for malignant neoplasm of prostate
CPT/HCPCS: 36415; 80048; 84153; 83036